=== PATIENT | female | born 1965 | race Caucasian/White ===

== ENCOUNTER → 2017-05-08 10:08 | Outpatient (CLI) | payer OTHER, SELFPAY ==
--- NOTE | 2017-05-08 10:13 | HPBI_ITS ---
MAMMOGRAPHY - BILATERAL DIAGNOSTIC REASON FOR EXAM: Female, 52 years old. Right breast lump PERTINENT HISTORY: Non-contributory. TECHNIQUE: Digital examination. Mediolateral oblique (MLO) and craniocaudad (CC) views of both breasts were obtained, along with 3-D tomosynthesis. CAD: CAD was performed on this study. COMPARISON: 03/08/2016 FINDINGS: Breast Composition: There are scattered areas of fibroglandular density. There are no dominant masses or suspicious calcifications. However, patient complains of a palpable right breast lump which needs further evaluation with ultrasound. No other significant abnormalities are identified. HPBI/DIAG MAMM W/CAD, BILAT IMPRESSION: Further ultrasonographic evaluation recommended, as described above. Recall Side: Right Breast ASSESSMENT CATEGORY: BIRADS Category 0: Incomplete. Need additional imaging evaluation. A letter regarding these results will be sent to the patient by the facility within 30 days. FOLLOW UP RECOMMENDATION: Ultrasound Recommended. (I) BR0A Approximately 10% of breast cancers are not detected by mammography. A normal mammogram should not delay biopsy of a clinically suspicious abnormality. Electronically Signed: Artie Romero MD at 13:40 EDT , Service support ,
--- NOTE | 2017-05-08 10:13 | US_ITS ---
STUDY: ULTRASOUND BREAST - RIGHT REASON FOR EXAM: Female, 52 years old. right breast lump TECHNIQUE: Axial and longitudinal images of the RIGHT breast were performed with a high resolution ultrasound transducer. COMPARISON: None. FINDINGS: RIGHT Breast: There is a cyst in the upper outer quadrant. The lesion measures 0.3 x 0.3 x 0.3 cm in size. Clock notation: 11 o'clock position. Distance from nipple: 2 cm. Posterior Enhancement: Yes. Posterior Shadowing: None. Margins: Sharp and smooth. Echogenicity: Anechoic. Compression effect on Shape: No change. Few dilated ducts are seen in the retroareolar region. US/Breast Limited Unilateral IMPRESSION: There is a cyst in the upper outer quadrant. The lesion measures 0.3 x 0.3 x 0.3 cm in size. Clock notation: 11 o'clock position. Distance from nipple: 2 cm. ASSESSMENT CATEGORY: BIRADS Category 2: Benign. A letter regarding these results will be sent to the patient by the facility within 30 days. Electronically Signed: Jayjay Avery MD at 9:55 EDT Tel , Service support ,
== END ==
PROVIDERS: Family Provider Family Medicine; PCP Family Medicine; Visit Provider Obstetrics & Gynecology
DX: N63.10 Unspecified lump in the right breast, unspecified quadrant (principal)
CPT/HCPCS: 76642; 77062; 77066; G0279

== ENCOUNTER → 2017-06-18 08:49 | Outpatient (CLI) | payer OTHER, SELFPAY ==
[2017-06-18 10:46] LABS: Creatinine, Serum 0.86 mg/dL (0.55-1.02); EST Glomerular Filtration Rate 75 mL/min (>60); Est Glom Filt Rate - Afr Amer 90 mL/min (>60)
== END ==
PROVIDERS: Family Provider Family Medicine; PCP Family Medicine; Visit Provider Psychiatry & Neurology Psychiatry
DX: Z79.899 Other long term (current) drug therapy (principal)
CPT/HCPCS: 36415; 80178; 82565; 84443

== ENCOUNTER → 2017-11-17 07:32 | Outpatient (CLI) | payer OTHER, SELFPAY ==
[2017-11-17 10:32] LABS: Follicle Stimulating Hormone 71.2 mIU/mL; Free T3 2.8 pg/mL (2.18-3.98); Luteinizing Hormone 36.9 mIU/mL; T4 Free Direct 0.81 ng/dL (0.76-1.46); Thyroid Stim Hormone (TSH) 3.14 uIU/mL (0.358-3.74)
== END ==
PROVIDERS: Family Provider Family Medicine; PCP Family Medicine; Referring Provider Family Medicine; Visit Provider Family Medicine
DX: R53.83 Other fatigue (principal)
CPT/HCPCS: 36415; 83001; 83002; 84439; 84443; 84481

== ENCOUNTER → 2018-01-19 08:48 | Outpatient (CLI) | payer OTHER, SELFPAY ==
[2017-05-12 13:03] VITALS: BMI 37.9
[2018-01-19 10:53] LABS: Creatinine, Serum 0.86 mg/dL (0.55-1.02); EST Glomerular Filtration Rate 74 mL/min (>60); Est Glom Filt Rate - Afr Amer 89 mL/min (>60); Thyroid Stim Hormone (TSH) 2.86 uIU/mL (0.358-3.74)
[2018-01-19 11:55] LABS: Cholesterol 212 mg/dL (200); High Density Lipoprotein 33 mg/dL; Triglycerides 299 mg/dL; Very Low Density Lipoprotein 60 mg/dL (5-40)
--- OUTSIDE RECORDS SUMMARY | 2018-03-14 10:57 | XMS RPT_ITS ---
:1965 Author Organization OHIP Support Name Relationship Address Phone SHAQUILLE BHATT Unavailable [address] + [place] [address] JAQUELINE ALVARADO Unavailable [address] + [place] [address] UE Unavailable Unavailable Unavailable SHAQUILLE BHATT Unavailable [address] + [place] [address] CHRISTIANO JAQUELINE Unavailable [address] + [place] [address] UE Unavailable Unavailable Unavailable SHAQUILLE BHATT Unavailable [address] [phone] [place] [address] CHRISTIANO JAQUELINE Unavailable [facility] [address] + [place] [address] UE Unavailable Unavailable Unavailable SHAQUILLE BHATT Unavailable [address] + [place] [address] CHRISTIANO JAQUELINE Unavailable [facility] [address] + [place] [address] UE Unavailable Unavailable Unavailable SHAQUILLE BHATT Unavailable [address] + [place] [address] CHRISTIANO JAQUELINE Unavailable [facility] [address] + [place] [address] UE Unavailable Unavailable Unavailable Care Team Providers Name Role Phone LORENZO AGGARWAL DO Attending Unavailable Jr Curtis Attending Unavailable Jr Curtis Referring Unavailable Lorenzo Aggarwal Primary Care Unavailable Marcos Banks Attending Unavailable Lorenzo Aggarwal Referring Unavailable Chel Barker Attending Unavailable Chel Barker Referring Unavailable Lorenzo Aggarwal Primary Care Unavailable Lorenzo Aggarwal Attending Unavailable Lorenzo Aggarwal Referring Unavailable Lorenzo Aggarwal Primary Care Unavailable Chuyita Serna Attending Unavailable Chuyita Serna Referring Unavailable Chuyita Serna Primary Care Unavailable Chel Barker Consulting Unavailable PROBLEMS PROBLEMS DATE TYPE CONDITION / CODE ATTENDING STATUS SOURCE 11/17/2017 Unknown R53.83 - Other Alessia, Active [facility] fatigue / [facility] R53.83(ICD-10) Hospital Repository 11/12/2017 Admitting Unspecified ALESSIA DO, Active [facility] Diagnosis abnormal findings LORENZO [facility] in urine / Repository R82.90(ICD-10) 05/08/2017 Unknown N63.10 - Jr Curtis Active [facility] Unspecified lump Community in [facility] Hospital breast, Repository unspecified quadrant / N63.10(ICD-10) PROCEDURES PROCEDURES No Procedure Records FoundRESULTS RESULTS SERUM CREATININE AND Collected: 01/19/2018 Status: F Source: LILY GFR 8:55 AM [facility] REPOSITORY TYPE CODE TESTS RESULT OUT OF RANGE REFERENCE UNITS LAB L501.1100 0.55-1.02 mg/dL Normal 0.86 CREAT,SERUM Result Comment: The validity of the calculated GFR AND GFRAA in patients over 70 years has not been determined. Clinical correlation is essential. LAB L501.1110 >60 mL/min Normal EST GFR 74 Result Comment: Non- GFR Calc LAB L501.1115 >60 mL/min Normal EST GFR - AA 89 Result Comment: GFR Calc Performed By: #### L501.1105, L501.9520 #### [facility] [address] [place], [place], [address] THYROID STIM HORMONE Collected: 01/19/2018 Status: F Source: LILY (TSH) 8:55 AM [facility] REPOSITORY TYPE CODE TESTS RESULT OUT OF RANGE REFERENCE UNITS LAB L501.9520 0.358-3.74 uIU/mL Normal TSH 2.86 Performed By: #### L501.1105, L501.9520 #### [facility] [address] [facility] [place], [address] LITHIUM Collected: 01/19/2018 Status: F Source: LILY 8:55 AM [facility] REPOSITORY Order Comment: Date of Last Dose: 01/18/18 Time of Last Dose: 2100 TYPE CODE TESTS RESULT OUT OF RANGE REFERENCE UNITS LAB L501.9060 0.60-1.20 mmol/L Normal LI 0.70 Performed By: #### L501.9060 #### [facility] [address] [facility], [address] LIPID PROFILE Collected: 01/19/2018 Status: F Source: LILY 8:55 AM [facility] REPOSITORY TYPE CODE TESTS RESULT OUT OF RANGE REFERENCE UNITS LAB L501.4900 200 mg/dL High CHOL 212 Result Comment: <200 mg/dL Desirable 200-240 mg/dL Borderline >240 mg/dL High Risk LAB L501.5000 mg/dL High TRIG 299 Result Comment: The drugs N-Acetylcysteine and Metamizole may falsely depress this assay. Serum Triglycerides Reference Interval Normal <150 mg/dL Borderline high 150 - 199 mg/dL High 200 - 499 mg/dL Very High > or = 500 mg/dL LAB L501.6400 mg/dL Low HDL 33 Result Comment: The drugs N-Acetylcysteine and Metamizole may falsely depress this assay. Reference Range HDL <40 mg/dL Low HDL Cholesterol HDL >or= 60 mg/dL High HDL Cholesterol LAB L501.6500 0-130 mg/dL Normal LDL 119 LAB L501.6600 5-40 mg/dL High VLDL 60 Performed By: #### L500.4100 #### [facility] [address] [place], [place], [address] FREE T3 Collected: 11/17/2017 Status: F Source: LILY 7:36 AM [facility] REPOSITORY TYPE CODE TESTS RESULT OUT OF RANGE REFERENCE UNITS LAB L501.86509 2.18-3.98 pg/mL Normal FREE T3 2.8 Performed By: #### L501.20210, L501.9520, L506.0400, L3100.5125, L3100.5170 #### [facility] [address] [place], [address] THYROID STIM HORMONE Collected: 11/17/2017 Status: F Source: LILY (TSH) 7:36 AM [facility] REPOSITORY TYPE CODE TESTS RESULT OUT OF RANGE REFERENCE UNITS LAB L501.9520 0.358-3.74 uIU/mL Normal TSH 3.14 Performed By: #### L501.46592, L501.9520, L506.0400, L3100.5125, L3100.5170 #### [facility] [address] [place], [place], [address] T4 FREE DIRECT Collected: 11/17/2017 Status: F Source: LILY 7:36 AM [facility] REPOSITORY TYPE CODE TESTS RESULT OUT OF RANGE REFERENCE UNITS LAB L506.0400 0.76-1.46 ng/dL Normal T4 FREE 0.81 DIRECT Performed By: #### L501.29077, L501.9520, L506.0400, L3100.5125, L3100.5170 #### [facility] [address] [place], [place], [address] FOLLICLE STIMULATING Collected: 11/17/2017 Status: F Source: BERTRAM HORMONE 7:36 AM [facility] REPOSITORY TYPE CODE TESTS RESULT OUT OF RANGE REFERENCE UNITS LAB L3100.5125 mIU/mL Normal FSH 71.2 Result Comment: NORMAL REFERENCE RANGES FEMALE FOLLICULAR 2.3 - 12.6 mIU/mL MID-CYCLE PEAK 5.2 - 17.5 mIU/mL LUTEAL 1.7 - 12.9 mIU/mL POST-MENOPAUSAL ON MHT 5.9 - 72.8 mIU/mL NOT ON MHT 12.7 - 132.2 mlU/mL MALE 0.7 - 10.8 mIU/mL NEW TEST METHOD AND REFERENCE RANGES JULY 08, 2011 Performed By: #### L501.22818, L501.9520, L506.0400, L3100.5125, L3100.5170 #### [facility] [address] [place], [place], [address] LUTEINIZING HORMONE Collected: 11/17/2017 Status: F Source: LILY 7:36 AM [facility] REPOSITORY TYPE CODE TESTS RESULT OUT OF RANGE REFERENCE UNITS LAB L3100.5170 mIU/mL Normal LH 36.9 Result Comment: NORMAL REFERENCE RANGES FEMALE FOLLICULAR 1.9 - 26.2 mIU/mL MID-CYCLE PEAK 22.8 - 76.1 mIU/mL LUTEAL 0.6 - 16.6 mIU/mL POST-MENOPAUSAL ON MHT 1.1 - 52.4 mIU/mL NOT ON MHT 8.6 - 61.8 mIU/mL MALE 1.2 - 10.6 mIU/mL NEW TEST METHOD AND REFERENCE RANGES JULY 08, 2011 Performed By: #### L501.59014, L501.9520, L506.0400, L3100.5125, L3100.5170 #### [facility] [address] [facility] [place], [address] Observed: 11/12/2017 Status: F Source: [facility] 6:26 AM [facility] REPOSITORY . MICRO - Microbiology PROCEDURE: Urine Culture [*1] SOURCE: Urine BODY SITE: COLLECTED DATE/TIME: 11/12/2017 06:26 EDT RECEIVED DATE/TIME: 11/12/2017 15:33 EDT START DATE/TIME: 11/12/2017 15:33 EDT FREE TEXT SOURCE: FINAL REPORTS Final Report [] Verified Date/Time/Personnel: 11/14/2017 06:50 EDT 20,000 organisms per mL Mixed without predominant isolate(s). Sensitivity Testing not indicated. Probably contamination. Repeat culture suggested. PRELIMINARY REPORTS Preliminary Report [] Verified Date/Time/Personnel: 11/13/2017 14:23 EDT Culture results pending. Performing Locations *1: This test was performed at: [facility], [address] [place] [address], [address] [place] [address] Performed By: #### CUR #### [place] [id number] LITHIUM Collected: 06/18/2017 Status: F Source: BERTRAM 9:10 AM [facility] REPOSITORY Order Comment: Date of Last Dose: 06/17/17 Time of Last Dose: 2114 TYPE CODE TESTS RESULT OUT OF RANGE REFERENCE UNITS LAB L501.9060 0.60-1.20 mmol/L Normal LI 0.70 Performed By: #### L501.9060 #### [facility] [address] [facility] [place], [address] SERUM CREATININE AND Collected: 06/18/2017 Status: F Source: LILY GFR 9:10 AM [facility] REPOSITORY TYPE CODE TESTS RESULT OUT OF RANGE REFERENCE UNITS LAB L501.1100 0.55-1.02 mg/dL Normal 0.86 CREAT,SERUM Result Comment: The validity of the calculated GFR AND GFRAA in patients over 70 years has not been determined. Clinical correlation is essential. LAB L501.1110 >60 mL/min Normal EST GFR 75 Result Comment: Non- GFR Calc LAB L501.1115 >60 mL/min Normal EST GFR - AA 90 Result Comment: GFR Calc Performed By: #### L501.1105, L501.9520 #### [facility] [address] [place], [place], [address] THYROID STIM HORMONE Collected: 06/18/2017 Status: F Source: LILY (TSH) 9:10 AM [facility] REPOSITORY TYPE CODE TESTS RESULT OUT OF RANGE REFERENCE UNITS LAB L501.9520 0.358-3.74 uIU/mL High TSH 3.90 Performed By: #### L501.1105, L501.9520 #### [facility] [address] [place], [place], [address] SURGERY VISIT REPORT Observed: 05/12/2017 Status: F Source: LILY 4:04 PM [facility] REPOSITORY [facility] [address] [facility] [address] [place] [address] OFFICE VISIT Date of Service: 05/12/17 MR#: [id number] Acct: [id number] Name: RAVIN BHATT Rep #: [id number] : 1965 Provider: Marcos Banks MD Age/Sex: 52/F Location: [facility] Status: Signed Intake Vital Signs05/12/17 Height 5 ft 7 in 05/12/17 Weight: 242 lb Intake Visit Reasons: Right Breast Mass Forge Hand Required: No Is patient in pain?: No Allergies azithromycin [From Zithromax] Allergy (Intermediate, Verified 05/12/17 13:12) rash steroids Allergy (Intermediate, Uncoded 05/12/17 13:05) severe mood swings Medications adalimumab 40 mg/0.8 mL subcutaneous pen kit 40 mg SC Q14D 05/12/17 [History Confirmed 05/12/17] lithium carbonate 300 mg capsule 1,200 mg PO ONCE cap 05/12/17 [History Confirmed 05/12/17] venlafaxine 75 mg tablet 75 mg PO QDAY tab 05/12/17 [History Confirmed 05/12/17] PFSH Medical History Arthritis (Acute) Lump of right breast (Acute) Surgical History History of back surgery (Acute) History of hysterectomy (Acute) Family History Mother Arthritis Diabetes Social History Smoking Status: Never smoker alcohol intake: never substance use type: does not use HPI HPI HPI: RAVIN BHATT, is a 52 F who presents to the office today for evaluation of an abnormal mammogram and ultrasound. Patient had a mammogram and ultrasounds done at [facility] on 05/08/2017. It was read as a BI-RADS Category 2 showing a 3 mm cyst at the 11 o'clock position 2 cm from the nipple areolar complex. She also had a few dilated ducts in the retroareolar region. Her HELMET HAT PUNCHER felt a mass in the upper aspect of her breast but this did not show any abnormalities on the ultrasound and a my viewing of it it did not show any abnormalities on the mammogram. At the time of this dictation however the mammogram was not read. ROS General General: Yes weight change; no appetite, fatigue, colon cancer, breast cancer or weakness Endo Endocrine: No thyroid disease, diabetes mellitus, thyroid cancer, Hair loss, heat intolerance or cold intolerance Skin Skin: Yes changing moles; no rash Breast Breast: Yes right breast lump; no left breast lump, nipple discharge, breast pain, abnormal mammogram, abnormal US or breast enlargement Musc Musculoskeletal: Yes back problems and arthritis; no rheumatoid arthritis, gout or joint pain Cardio Cardiovascular: No murmur, pacemaker, heart disease, atrial fibrillation, high blood pressure, heart attack, heart stent, palpitations, shortness of breat with exertion or chest pain Psych Psychiatric: No depression, anxiety or hearing voices Resp Respiratory: No shortness of breath, No sleep apnea, No cough, No COPD, No asthma, No emphysema, No wheezing Gastro Gastrointestinal: No abdominal pain, No nausea or vomiting, No diarrhea, No constipation, No blood in stool, No acid reflux, No hemorrhoids, No ulcers, No gallbladder problem, No black,tarry stools Jayden Hematologic: No blood thinners, No blood disorders, No bleeding, No anemia, No blood clots Neuro Neurologic: No system reviewed and no additional complaints, except as docu, No as per HPI, No abnormal walking, No abnormal hearing, No abnormal movements, No abnormal speech, No behavioral changes, No burning sensations, No confusion, No seizure-like activity, No unsteadiness, No dizziness, No localized weakness, No frequent falls, No headache(s), No lack of coordination, No loss of vision, No memory loss, No numbness, No other visual disturbances, No radiating pain, No restless legs, No sensory deficit, No fainting, No tingling, No tremor(s), No weakness, No other Exam HENMT Head: normal to inspection, normocephalic, atraumatic Mouth: moist mucous membranes, oropharynx normal Eyes General: appearance normal, both eyes and all related structures Sclera: sclerae normal Neck Neck: no lymphadenopathy noted, trachea midline Neck mass: No Thyroid: thyroid normal Lymphatic: no lymphadenopathy noted Chest Breast inspection: normal inspection of the breasts Breast Palpation: No nipple discharge Other: There is some thickened breast tissue in the upper aspect of both breasts more so on the right though. This does not feel pathologic in nature. Resp Other: Respiratory Exam: Deferred Cardio Heart Sounds: no murmurs Other: Cardiac Exam: Deferred GI Other: GI Exam: Deferred Other: Rectal Exam: Deferred Extrem Other: Extremity Exam: Deferred Assessment AND Plan Problems 1. Cyst of right breast N60.01 Plan No surgical intervention is needed at this time. I am going to have to wait until we get the final reading done before I make my final recommendations with regards to any potential stereotactic breast biopsies. But at the present time I really do not think we need to do any biopsy. Medications New: Coding Level of Care Code Off vis,new,level 2 Diagnoses Cyst of right breast N60.01 Laterality: right 05/12/17 1604 <Electronically signed by Marcos Banks MD> Date Marcos Falcon Signature: Date (if applicable) CC: Lorenzo Aggarwal DO; Jr Curtis MD BREAST LIMITED Observed: 05/08/2017 Status: F Source: LILY UNILATERAL 10:14 AM [facility] REPOSITORY [facility] Imaging Services [address] [place] [address] Breast Limited Unilateral MR#: [id number] Acct: [id number] Name: RAVIN BHATT Rep #: [id number] : 1965 F 52 From: Jayjay Avery MD PCP: Lorenzo Aggarwal DO Status: REG CLI Study: Breast Limited Unilateral Date of Exam: 05/08/17 Exam# [id number] Ordering Dr: Jr Curtis MD STUDY: ULTRASOUND BREAST - RIGHT REASON FOR EXAM: Female, 52 years old. right breast lump TECHNIQUE: Axial and longitudinal images of the RIGHT breast were performed with a high resolution ultrasound transducer. COMPARISON: None. FINDINGS: RIGHT Breast: There is a cyst in the upper outer quadrant. The lesion measures 0.3 x 0.3 x 0.3 cm in size. Clock notation: 11 o'clock position. Distance from nipple: 2 cm. Posterior Enhancement: Yes. Posterior Shadowing: None. Margins: Sharp and smooth. Echogenicity: Anechoic. Compression effect on Shape: No change. Few dilated ducts are seen in the retroareolar region. US/Breast Limited Unilateral IMPRESSION: There is a cyst in the upper outer quadrant. The lesion measures 0.3 x 0.3 x 0.3 cm in size. Clock notation: 11 o'clock position. Distance from nipple: 2 cm. ASSESSMENT CATEGORY: BIRADS Category 2: Benign. A letter regarding these results will be sent to the patient by the facility within 30 days. Electronically Signed: Jayjay Avery MD at 9:55 EDT Tel , Service support , CC: Lorenzo Aggarwal DO; Jr Curtis MD Manual Writer: Signed DIAG MAMM W/CAD, Observed: 05/08/2017 Status: F Source: BERTRAM BILAT 10:14 AM [facility] REPOSITORY [facility] Imaging [facility] [address] [address] DIAG MAMM W/CAD, BILAT MR#: [id number] Acct: [id number] Name: RAVIN BHATT Rep #: [id number] : 1965 F 52 From: Weston Romero MD PCP: Lorenzo Aggarwal DO Status: REG CLI Study: DIAG MAMM W/CAD, BILAT Date of Exam: 05/08/17 Exam# [id number] Ordering Dr: Jr Curtis MD MAMMOGRAPHY - BILATERAL DIAGNOSTIC REASON FOR EXAM: Female, 52 years old. Right breast lump PERTINENT HISTORY: Non-contributory. TECHNIQUE: Digital examination. Mediolateral oblique (MLO) and craniocaudad (CC) views of both breasts were obtained, along with 3-D tomosynthesis. CAD: CAD was performed on this study. COMPARISON: 03/08/2016 FINDINGS: Breast Composition: There are scattered areas of fibroglandular density. There are no dominant masses or suspicious calcifications. However, patient complains of a palpable right breast lump which needs further evaluation with ultrasound. No other significant abnormalities are identified. HPBI/DIAG MAMM W/CAD, BILAT IMPRESSION: Further ultrasonographic evaluation recommended, as described above. Recall Side: Right Breast ASSESSMENT CATEGORY: BIRADS Category 0: Incomplete. Need additional imaging evaluation. A letter regarding these results will be sent to the patient by the facility within 30 days. FOLLOW UP RECOMMENDATION: Ultrasound Recommended. (I) BR0A Approximately 10% of breast cancers are not detected by mammography. A normal mammogram should not delay biopsy of a clinically suspicious abnormality. Electronically Signed: Artie Romero MD at 13:40 EDT , Service support , CC: Lorenzo Curtis MD Manual Writer: Signed ALLERGIES ALLERGIES DATE TYPE / CODE NAME / CODE REACTION SEVERITY SOURCE 05/12/2017 Drug azithromycin/F Rash [place] [facility] Allergy/497442974(S 108438482(RXNO [facility] NOMED CT) ) Hospital Repository 05/12/2017 Miscellaneous steroids severe mood [place] [facility] Allergy/110861963(S swings [facility] NOMED CT) Hospital Repository ENCOUNTERS ENCOUNTERS ADMIT/DISCHARGE ACCOUNT NUMBER ADMITTING ENCOUNTER LOCATION SOURCE CLASS 01/19/2018 [id number] [facility] ding:[facility] Repository 11/17/2017 [id number] [facility] ding:[facility] Repository 11/12/2017/11/17/19 [id number] Ambulatory [address] ding:[facility] Repository 06/18/2017 [id number] [facility] ding:MTLAB Repository 05/12/2017/05/13/19 [id number] Ambulatory BMSBuilding: Lily [facility] Count includes the [facility] Repository 05/08/2017 [id number] [facility] ding:BI Repository PAYERS PAYERS ENCOUNTER GUARANTOR PAYER SUBSCRIBER SOURCE 01/19/2018 RAVIN L Primary Insurance:UMR SHAQUILLE J [facility] [id number] SHENA [id number] HEFFELFINGERDOB: [facility] [address] Number: [id number], [place] [id number] Repository [address]Qxv: (330) Date:[id number] [phone] () [address] [place] [phone]: 01/19/2018 Secondary NOT GIVENUNK [facility] Insurance:SELF PAY [facility] Number: Effective Repository Date:2018-01-19 11/17/2017 RAVIN L Primary Insurance:UMR SHAQUILLE Lauryn Hanna [id number] SHENA [id number] HEFFELFINGERDOB: [facility] [address] Number: [id number], [place] [id number] Repository [address]Aoy: ([phone]) Date:[id number] [phone] () [address] [place] [phone]: 11/17/2017 Secondary NOT GIVENUNK [facility] Insurance:SELF PAY [facility] Number: Effective Repository Date:2017-11-17 11/12/2017 RAVIN [facility]: Insurance[facility] HospitalFFECarylFINAMYB: [facility] [id number] S Number: [id number] Repository [address] [id number] [address] [place], [place] Date:2017-11-12 - [place], [place] [address]Nxk: [phone] [id number]: (HP) Name:SENIOR LINUX ADMINISTRATOR [phone] [place] [address], ()Tel: ([phone]) PM [phone]: [phone] (WP) 06/18/2017 RAVIN L Primary Insurance:UMR SHAQUILLE Lauryn Hanna [id number] SHENA [id number] HEFFELFINGERDOB: [facility] [address] Number: [id number], [place] [id number] Repository [address]Qmk: [phone]) Date:[id number] [phone] (HP) [address] [place] [phone]: 06/18/2017 Secondary NOT GIVENUNK [facility] Insurance:SELF PAY [facility] Number: Effective Repository Date:2017-06-18 05/12/2017 Shaquille J Primary Insurance:UMR Shaquille J Lily [id number] SHENA [id number] HeffelfingerDOB: [facility] [address] Number: [id number], [place] [id number] Repository [address]Hng: ([phone]) Date:[id number] [phone] () [address] [place] [phone]: 05/12/2017 Secondary NOT GIVENUNK Lily Insurance:SELF PAY [facility] Number: Effective Repository Date:2017-05-12 05/08/2017 RAVIN L Primary Insurance:UMR Shaquille J Lily [id number] SHENA [id number] HeffelfingerDOB: [facility] [address] Number: [id number], [place] [id number] Repository [address]Ail: ([phone]) Date:[id number] [phone] (HP) [address] [place] [phone]: 05/08/2017 Secondary NOT GIVENUNK Lily Insurance:SELF PAY [facility] Number: Effective Repository Date:2017-05-01
== END ==
PROVIDERS: Psychiatry & Neurology Psychiatry; Family Provider Family Medicine; PCP Family Medicine; Referring Provider Family Medicine; Visit Provider Family Medicine
DX: Z00.01 Encounter for general adult medical examination with abnormal findings (principal); Z79.899 Other long term (current) drug therapy
CPT/HCPCS: 36415; 80061; 80178; 82565; 84443

== ENCOUNTER → 2018-04-23 08:53 | Outpatient (CLI) | payer OTHER, SELFPAY ==
[2018-04-23 12:36] LABS: AST(SGOT) 34 U/L (15-37); Alanine Aminotransfer ALT/SGPT 56 U/L (13-56); Albumin, Serum 4.1 g/dL (3.2-5.0); Alkaline Phosphatase 110 U/L (45-117); Bilirubin, Direct 0.07 mg/dL (0.00-0.30); Protein, Total 8.1 g/dL (6.4-8.2)
== END ==
PROVIDERS: Family Provider Family Medicine; PCP Family Medicine; Visit Provider Family Medicine
DX: E78.5 Hyperlipidemia, unspecified (principal)
CPT/HCPCS: 36415; 80076

== ENCOUNTER → 2018-06-03 | Outpatient (CLI) | payer OTHER, SELFPAY ==
[2017-05-12 13:03] VITALS: BMI 37.9
[2018-06-03 13:03] LABS: CPK Total, Creatine Kinase 106 U/L (26-192); Thyroid Stim Hormone (TSH) 2.08 uIU/mL (0.358-3.74)
== END | disposition home or self-care (01) ==
LOC: MTLAB 10:06
PROVIDERS: Family Provider Family Medicine; PCP Family Medicine; Referring Provider Psychiatry & Neurology Psychiatry; Visit Provider Psychiatry & Neurology Psychiatry
DX: Z79.899 Other long term (current) drug therapy (principal)
CPT/HCPCS: 36415; 80178; 82550; 84443

== ENCOUNTER → 2018-06-04 | Outpatient (CLI) | payer OTHER, SELFPAY ==
[2017-05-12 13:03] VITALS: BMI 37.9
--- NOTE | 2018-06-04 13:35 | BI_ITS ---
MAMMOGRAPHY - BILATERAL SCREENING REASON FOR EXAM: Female, 53 years old. Routine annual screening examination. PERTINENT HISTORY: Non-contributory. TECHNIQUE: Digital bilateral breast nikole (3D mammographic acquisition) in the CC and MLO projections. 2-D mediolateral oblique (MLO) and craniocaudad (CC) views of both breasts were obtained. CAD: Full Field Digital Mammography with Computer Added Detection was performed. COMPARISON: Comparison is made with prior study dated September 05, 2016 and May 09, 2007. FINDINGS: Breast Composition: The breasts are heterogeneously dense, which may obscure small masses. There are no dominant masses or suspicious calcifications. Stable asymmetry of breast tissue or more breast tissue is seen in the upper outer quadrant of the left breast as compared to the right side. Stable small bilateral axillary lymph nodes. No other significant abnormalities are identified. There has been no significant change since the prior study. BI/SCREENING MAMM (CAD), BILAT IMPRESSION: Stable bilateral screening mammogram. Yearly follow-up mammogram recommended. (A) ASSESSMENT CATEGORY: BIRADS Category 2: Benign. A letter regarding these results will be sent to the patient by the facility within 30 days. Approximately 10% of breast cancers are not detected by mammography. A normal mammogram should not delay biopsy of a clinically suspicious abnormality. [id number] Electronically Signed: Kurt Mattson, at 9:40 EDT , Service support ,
== END | disposition home or self-care (01) ==
LOC: OPBI 13:33
PROVIDERS: Family Provider Family Medicine; PCP Family Medicine; Referring Provider Obstetrics & Gynecology; Visit Provider Obstetrics & Gynecology
DX: Z12.31 Encounter for screening mammogram for malignant neoplasm of breast (principal)
CPT/HCPCS: 77063; 77067

== ENCOUNTER → 2018-07-07 | Outpatient (CLI) | payer OTHER, SELFPAY ==
[2017-05-12 13:03] VITALS: BMI 37.9
--- NOTE | 2018-07-07 12:04 | RAD_ITS ---
STUDY: X-RAY - LEFT WRIST REASON FOR EXAM: Female, 53 years old. Injury several weeks ago, navicular pain TECHNIQUE: 4 view(s) of the wrist were obtained. COMPARISON: None. FINDINGS: Normal visualized distal radius and ulna. Normal radiocarpal articulation. Normal distal radioulnar articulation. Normal carpal bones. Normal carpal articulations. Normal carpometacarpal articulation of the thumb. Normal second through fifth carpometacarpal articulations. Normal visualized metacarpal bones. The soft tissue structures are unremarkable. RAD/Wrist min 3 Views IMPRESSION: No acute osseous injury is evident. Electronically Signed: Serge Mcrae MD at 8:32 EDT Tel , Service support ,
--- NOTE | 2018-07-07 12:04 | RAD_ITS ---
STUDY: X-RAY - LEFT RADIUS AND ULNA REASON FOR EXAM: Female, 53 years old. Injury several weeks ago. Leash wrapped around left wrist with dog pulling on leash. Pain near the navicular area. TECHNIQUE: 2 view(s) of the forearm. COMPARISON: None. FINDINGS: There is no demonstrated soft tissue swelling. Normal visualized radius. Normal visualized ulna. RAD/Forearm 2 Views IMPRESSION: Normal x-ray examination of the radius and ulna. Electronically Signed: Edwin Longoria MD at 11:25 EDT , Service support ,
== END | disposition home or self-care (01) ==
LOC: MTRAD 12:00
PROVIDERS: Family Provider Family Medicine; PCP Family Medicine; Referring Provider Family Medicine; Visit Provider Family Medicine
DX: S63.502A Unspecified sprain of left wrist, initial encounter (principal)
CPT/HCPCS: 73090; 73110

== ENCOUNTER → 2018-11-17 | Outpatient (CLI) | payer OTHER, SELFPAY ==
[2017-05-12 13:03] VITALS: BMI 37.9
[2018-11-17 13:00] LABS: Creatinine, Serum 0.95 mg/dL (0.55-1.02); EST Glomerular Filtration Rate 66 mL/min (>60); Est Glom Filt Rate - Afr Amer 80 mL/min (>60); Thyroid Stim Hormone (TSH) 3.42 uIU/mL (0.358-3.74)
== END | disposition home or self-care (01) ==
LOC: MTLAB 09:37
PROVIDERS: Family Provider Family Medicine; PCP Family Medicine; Referring Provider Psychiatry & Neurology Psychiatry; Visit Provider Psychiatry & Neurology Psychiatry
DX: Z79.899 Other long term (current) drug therapy (principal)
CPT/HCPCS: 36415; 80178; 82565; 84443

== ENCOUNTER → 2019-01-19 07:57 | Outpatient (CLI) | payer OTHER, SELFPAY ==
--- NOTE | 2019-01-19 08:00 | RAD_ITS ---
PROCEDURE: SMALL BOWEL SERIES DATE OF EXAMINATION: January 19, 2019.. INDICATION: Female, 53 years old. History of Crohn's disease. History of prior fistula. PHYSICIAN: Kurt Mattson M.D. FLUOROSCOPY TIME (if supplied): (0:30) minutes/seconds. TECHNIQUE: Radiographic and fluoroscopic images were taken of the small intestine following the ingestion of barium. COMPARISON: Comparison is made with prior study dated June 26, 2015. FINDINGS: A preliminary supine KUB was obtained. There is an unremarkable bowel gas pattern. Fecal material is present throughout the colon. Linear densities are seen overlying the lateral aspect of the right abdominal wall most likely representing prior barium extravasation. The lung bases are unremarkable. The osseous structures are normal. The patient orally ingested approximately 12 ounces of thin barium Normal visualized fundus, body, and antrum of the stomach. Normal duodenal bulb, C-loop, and proximal jejunum. Normal visualized mucosal folds of the jejunum and ileum. There are no demonstrated dilatations, strictures, or masses of the small intestine. There is no mass displacement of the loops of small intestine. There is a normal motor pattern with barium reaching the colon within approximately 45 minutes. Spot films under fluoroscopic observation demonstrated a normal terminal ileum and ileocecal valve. RAD/Small Bowel Series Only IMPRESSION: Normal small bowel series. Electronically Signed: Kurt Mattson, at 15:49 EST , Service support ,
== END ==
LOC: RAD 07:58
PROVIDERS: Family Provider Family Medicine; PCP Family Medicine; Referring Provider Internal Medicine Gastroenterology; Visit Provider Internal Medicine Gastroenterology
DX: K50.90 Crohn's disease, unspecified, without complications (principal)
CPT/HCPCS: 74250

== ENCOUNTER 2019-01-25 11:30 | Outpatient (RCR) | payer OTHER, SELFPAY ==
--- NOTE | 2019-01-06 12:15 | HP.OTEVAL_ITS ---
Patient's Visit Information ROSE BHATT is a 53 year old F, referred to Occupational Therapy by Chuyita Serna MD, with a diagnosis of Left wrist pain. Date of Evaluation: 01/06/19 Occupational Therapist: Cindy Gasca, DAK[place]/L - Subjective Subjective: Arrived and noted that orginal injury occured in May 2018. She noted she was walking puppy and dog took off on her. She noted leash was around wrist and when dog ran it pull on wrist. X-rays were insignificant. She noted they she continues to reinjury left wrist off/on. She noted wrist was feeling better but has reinjuryed. - ADLs Dressing: Bra, Pants, Socks, Shoes Eating: Cut food Kitchen: Chop with knife, Peel fruits & vegetables, Open jars, Open bottle caps, Take dish out of oven Household: Laundry Miscellaneous: Turn pages in book, Pump gas, Drive Comments: holding marlene - Pain Left Wrist 1 Pain Intensity Range: 1, 8 - ROM Wrist: flexion 0-73, L 0-60; ext R 0-55, L 0-49 MP: WFL PIP: WFL DIP: WFL ROM Comments: radial dev R 0-15, L 0-13. ulnar dev R 0-33, L 0-15. Increased pain with all movements of left wrist and hand. - Strength Hair Stylist: R 49, L 31 Lateral Pinch: R 10, L 8 Tripod Pinch: R 3, L 5 Tip-to-Tip Pinch: R unable, L 2 Strength Comments: Increased pain with all movements of left wrist and hand. 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 Goal:: Rose to have no more than 1/10 pain 4/5 trials 80% of the time with heavy tasks 4/5 trials 80% of the time by d/c. Goal:: Rose to complete edema management as needed through contrast bath, moist heat, and ice 4/5 trials 80% of the time to manage symptoms and pain to promote increased (I) by d/c. Goal:: Rose to be (I) to complete correct ergonomic and wrist mechanics 4/5 trials 80% of the time to promote increased ROM and stability by end of d/c. Goal:: Rose to be (I) to completed all ADL/IADls with L hand at PLOF with no pain 4/5 trials 80% of the time by d/c. Goal:: Rose to be (I) to complete daily HEp 4/5 trials 80% of the time to promote increased strength and stability of L wrist for ADL/IADls by d/c. - Rehabilitation General Assessment: Rose completed OT evaluation on this date 01/06/19. She is 7 month post injury while alking dog. She has had ongoing paina nd then reinjury wrist recently. Increased weakness noted throhgout wrist. Concerns of TFCC involvement as increased pain with ulnar deviation movements. Skilled OT warrented to promote strength, stability, and ability to return to PLOF by d/c. Rehabilitation Potential: Good - Anticipated Interventions Anticipated Interventions: A/AAROM/PROM, Strengthening, Edema Control, Mo dalities, Orthoses, Joint Protection/Energy Conservation, Ergonomic Education, Fine Motor Coord/Eulalio, ADL Training, Caregiver Training, Home Program - Visit Plan Frequency: 2x /Week Duration: 4 Weeks General Plan: Rose to complete 2x weekly OT tx to work on addressing strength, stability, edema and pain management, and ability to return to PLOF by d/c. TEXT: Thank you for the opportunity to evaluate your patient. For Medicare and Medicare HMO plans, please review the plan of care and approve it. It will need to be FAXED BACK to us at [phone] for Medicare purposes. Please let me know if there are questions or concerns regarding this plan of care. Physician Signature: Date:
--- NOTE | 2019-03-16 07:37 | HP.OT.NRP ---
HP - Discharge Summary - Patient Information RAVIN BHATT was seen in my office for initial evaluation on 01/06/19. The following Plan of Care was established for this patient: Initial Frequency: 2x /Week Initial Duration: 4 Weeks Plan: continue POC. - Anticipated Interventions Anticipated Interventions: A/AAROM/PROM, Strengthening, Edema Control, Modalities, Orthoses, Joint Protection/Energy Conservation, Ergonomic Education, Fine Motor Coord/Eulalio, ADL Training, Caregiver Training, Home Program This patient was last seen in our office 01/26/20. Pertinent comments regarding their Occupational therapy will appear below: Last seen to make thumb spica to help support CMC as increased pain around CMC as well as around scaphoid when palpated. She cancelled following appointments and will be d/c'd at this time. At this point I will be discontinuing this patient from occupational therapy. I would be happy to see this patient again in the future if found appropriate by the physician. Thank you! Cindy Gasca, OTR/L
== END 2019-01-25 19:00 | disposition home or self-care (01) ==
LOC: OT 11:30
PROVIDERS: Family Provider Family Medicine; PCP Family Medicine; Referring Provider Family Medicine; Visit Provider Family Medicine
DX: S63.502D Unspecified sprain of left wrist, subsequent encounter (principal)
CPT/HCPCS: 97035; 97166; 97530; 97760

== ENCOUNTER → 2019-03-29 09:55 | Outpatient (CLI) | payer OTHER, SELFPAY ==
[2017-05-12 13:03] VITALS: BMI 37.9
[2019-03-29 12:14] LABS: Hematocrit 41.4 % (37-47); Hemoglobin 13.7 g/dL (12.0-15.0); Mean Corp Hgb Conc 33.1 g/dL (32-36); Mean Corpuscular Hgb 30.9 pg (27.0-32.0); Mean Corpuscular Volume 93.5 fL (81-99); Mean Platelet Vol. 10.7 fl (6.2-12.0); Platelet Count 251 K/mm3 (150-450); RBC Distribution Width CV 11.9 % (11.6-14.6); Red Blood Count 4.43 M/mm3 (4.2-5.4); White Blood Count 6.6 K/mm3 (4.4-11.0)
[2019-03-29 12:43] LABS: AST(SGOT) 20 U/L (15-37); Alanine Aminotransfer ALT/SGPT 43 U/L (13-56); Albumin, Serum 3.8 g/dL (3.2-5.0); Alkaline Phosphatase 109 U/L (45-117); Bilirubin, Direct 0.13 mg/dL (0.00-0.30); Cholesterol 165 mg/dL (200); Globulin 4.2 g/dL (2.2-4.2); High Density Lipoprotein 38 mg/dL; Triglycerides 232 mg/dL; Very Low Density Lipoprotein 46 mg/dL (5-40)
[2019-03-29 12:58] LABS: CRP 4.86 mg/L (0.0-3.0)
== END ==
PROVIDERS: PCP Family Medicine; Referring Provider Internal Medicine Gastroenterology; Visit Provider Internal Medicine Gastroenterology
DX: E78.5 Hyperlipidemia, unspecified (principal)
CPT/HCPCS: 36415; 80061; 80076; 85027; 86140

== ENCOUNTER → 2019-08-25 11:24 | Outpatient (CLI) | payer OTHER, SELFPAY ==
[2017-05-12 13:03] VITALS: BMI 37.9
[2019-08-25 15:50] LABS: Absolute Neutrophil Count 4.7 X10^3/uL (2.0-7.7); Basophil# 0.05 X10^3/uL; Basophil% 0.6 % (0-1); Eosinophil# 0.22 X10^3/uL; Eosinophils% 2.8 % (0-5); Hematocrit 40.6 % (37-47); Hemoglobin 12.8 g/dL (12.0-15.0); Lymphocyte % 30.5 % (19-41); Mean Corp Hgb Conc 31.5 g/dL (32-36); Mean Corpuscular Hgb 30.7 pg (27.0-32.0); Mean Corpuscular Volume 97.4 fL (81-99); Mean Platelet Vol. 11.1 fl (6.2-12.0); Monocyte# 0.51 X10^3/uL; Monocyte% 6.5 % (0-10); NRBC Flagged by Analyzer 0 % (0-5); Neutrophil # 4.67 X10^3/uL (2.7-7.7); Neutrophil % 59.2 % (47-70); Platelet Count 289 K/mm3 (150-450); RBC Distribution Width CV 12.2 % (11.6-14.6); RBC Distribution Width SD 43.6 fl (35.1-43.9); Red Blood Count 4.17 M/mm3 (4.2-5.4); White Blood Count 7.9 K/mm3 (4.4-11.0)
== END ==
LOC: LAB.FUTURE 11:25 → MTLAB 11:40
PROVIDERS: PCP Family Medicine; Referring Provider Internal Medicine Gastroenterology; Visit Provider Internal Medicine Gastroenterology
DX: K50.90 Crohn's disease, unspecified, without complications (principal)
CPT/HCPCS: 36415; 85025

== ENCOUNTER → 2019-09-14 15:53 | Outpatient (CLI) | payer OTHER, SELFPAY ==
--- NOTE | 2019-09-14 15:55 | BI_ITS ---
MAMMOGRAPHY - BILATERAL SCREENING REASON FOR EXAM: Female, 54 years old. Routine annual screening examination. PERTINENT HISTORY: Non-contributory. TECHNIQUE: Digital bilateral breast nancy (3D mammographic acquisition) in the CC and MLO projections. 2-D mediolateral oblique (MLO) and craniocaudad (CC) views of both breasts were obtained. CAD: Full Field Digital Mammography with Computer Added Detection was performed. COMPARISON: Comparison is made with prior study dated 06/04/2018 and 05/08/2017. FINDINGS: Breast Composition: The breasts are heterogeneously dense, which may obscure small masses. There are no dominant masses or suspicious calcifications. Stable asymmetry of breast tissue where more breast tissue is seen in the upper outer quadrant of left breast as compared to the right side. Stable benign-appearing bilateral axillary lymph nodes. No other significant abnormalities are identified. There has been no significant change since the prior study. BI/SCREEN MAMM (CAD) W/NANCY BILAT IMPRESSION: Stable bilateral screening mammogram. Yearly follow-up mammogram recommended. (A) ASSESSMENT CATEGORY: BIRADS Category 2: Benign. A letter regarding these results will be sent to the patient by the facility within 30 days. Approximately 10% of breast cancers are not detected by mammography. A normal mammogram should not delay biopsy of a clinically suspicious abnormality. [id number] Electronically Signed: Kurt Mattson, at 8:26 EDT , Service support ,
== END ==
PROVIDERS: PCP Family Medicine; Referring Provider Obstetrics & Gynecology; Visit Provider Obstetrics & Gynecology
DX: Z12.31 Encounter for screening mammogram for malignant neoplasm of breast (principal)
CPT/HCPCS: 77063; 77067

== ENCOUNTER → 2019-10-14 10:05 | Outpatient (CLI) | payer OTHER, SELFPAY ==
[2017-05-12 13:03] VITALS: BMI 37.9
[2019-10-14 12:54] LABS: Creatinine, Serum 0.93 mg/dL (0.55-1.02); EST Glomerular Filtration Rate 67 mL/min (>60); Est Glom Filt Rate - Afr Amer 81 mL/min (>60); Thyroid Stim Hormone (TSH) 3.43 uIU/mL (0.358-3.74)
== END ==
LOC: MTLAB 10:07
PROVIDERS: PCP Family Medicine; Referring Provider Psychiatry & Neurology Psychiatry; Visit Provider Psychiatry & Neurology Psychiatry
DX: F19.10 Other psychoactive substance abuse, uncomplicated (principal); R53.83 Other fatigue; Z79.899 Other long term (current) drug therapy
CPT/HCPCS: 36415; 80178; 82565; 84443

== ENCOUNTER → 2020-02-29 09:22 | Outpatient (CLI) | payer OTHER, SELFPAY ==
[2020-02-29 12:24] LABS: Absolute Lymphocyte Count 1.94 X10^3/uL (0.83-4.51); Absolute Neutrophil Count 4.2 X10^3/uL (2.0-7.7); Basophil# 0.05 X10^3/uL; Basophil% 0.7 % (0-1); Eosinophil# 0.18 X10^3/uL; Eosinophils% 2.6 % (0-5); Hematocrit 42.5 % (37-47); Hemoglobin 13.6 g/dL (12.0-15.0); Lymphocyte # 1.94 X10^3/ul (4.0); Lymphocyte % 28.4 % (19-41); Mean Corpuscular Hgb 29.9 pg (27.0-32.0); Mean Corpuscular Volume 93.4 fL (81-99); Mean Platelet Vol. 11.3 fl (6.2-12.0); Monocyte# 0.45 X10^3/uL; Monocyte% 6.6 % (0-10); NRBC Flagged by Analyzer 0 % (0-5); Neutrophil # 4.19 X10^3/uL (2.7-7.7); Neutrophil % 61.4 % (47-70); Platelet Count 260 K/mm3 (150-450); RBC Distribution Width CV 11.9 % (11.6-14.6); RBC Distribution Width SD 41.2 fl (35.1-43.9); Red Blood Count 4.55 M/mm3 (4.2-5.4); White Blood Count 6.8 K/mm3 (4.4-11.0)
[2020-02-29 13:25] LABS: ALB/GLOB Ratio 0.9 RATIO (0.9-2.4); AST(SGOT) 23 U/L (15-37); Alanine Aminotransfer ALT/SGPT 49 U/L (13-56); Albumin, Serum 3.8 g/dL (3.2-5.0); Alkaline Phosphatase 117 U/L (45-117); Anion Gap 9 (5-15); BUN 12 mg/dL (7-18); BUN/Creat Ratio 14.1 RATIO (10-20); Calcium,Total 9.6 mg/dL (8.5-10.1); Chloride 109 mmol/L (98-107); Cholesterol 159 mg/dL (200); Creatinine, Serum 0.85 mg/dL (0.55-1.02); EST Glomerular Filtration Rate 74 mL/min (>60); Est Glom Filt Rate - Afr Amer 90 mL/min (>60); Globulin 4.1 g/dL (2.2-4.2); Glucose 178 mg/dL (74-106); High Density Lipoprotein 37 mg/dL; Protein, Total 7.9 g/dL (6.4-8.2); Sodium Level 138 mmol/L (136-145); Thyroid Stim Hormone (TSH) 2.84 uIU/mL (0.358-3.74); Triglycerides 278 mg/dL; Very Low Density Lipoprotein 56 mg/dL (5-40)
== END ==
PROVIDERS: PCP Family Medicine; Visit Provider Family Medicine
DX: E78.5 Hyperlipidemia, unspecified (principal); K50.90 Crohn's disease, unspecified, without complications; F31.9 Bipolar disorder, unspecified
CPT/HCPCS: 36415; 80053; 80061; 84443; 85025

== ENCOUNTER → 2020-03-07 13:10 | Outpatient (CLI) | payer OTHER, SELFPAY ==
[2020-03-07 14:49] LABS: Erythrocyte Sedimentation Rate 18 mm/hr (0-30)
[2020-03-07 14:58] LABS: CRP 2.95 mg/L (0.0-3.0)
[2020-03-07 15:04] LABS: Hemoglobin A1c 6.9 % (3.8-5.6)
== END ==
PROVIDERS: PCP Family Medicine; Visit Provider Family Medicine
DX: R73.01 Impaired fasting glucose (principal); K50.90 Crohn's disease, unspecified, without complications
CPT/HCPCS: 36415; 83036; 85652; 86140

== ENCOUNTER → 2020-05-11 09:27 | Outpatient (CLI) | payer OTHER, SELFPAY ==
[2017-05-12 13:03] VITALS: BMI 37.9
--- NOTE | 2020-05-11 09:30 | RAD_ITS ---
STUDY: X-RAY - RIGHT ANKLE REASON FOR EXAM: Female, 55 years old. medial right ankle pain just recent -- pt cannot remember recent injury, did have a fall in Mar TECHNIQUE: 3 view(s) of the ankle. COMPARISON: None. FINDINGS: Normal visualized distal tibia and fibula. Normal medial and lateral malleoli. Normal tibiotalar articulation and ankle mortise. Normal visualized talus and calcaneus. Small plantar calcaneal enthesophyte. The visualized subtalar, talonavicular, calcaneocuboid and tarsal articulations are normal. The soft tissue structures are unremarkable. RAD/Ankle min 3 Views IMPRESSION: Normal x-ray examination of the ankle. Electronically Signed: Nathanael Matthews MD at 13:41 EDT Tel , Service support ,
== END ==
PROVIDERS: PCP Family Medicine; Referring Provider Family Medicine; Visit Provider Family Medicine
DX: M25.571 Pain in right ankle and joints of right foot (principal)
CPT/HCPCS: 73610

== ENCOUNTER → 2020-10-05 09:39 | Outpatient (CLI) | payer OTHER, SELFPAY ==
[2020-10-05 11:41] LABS: Creatinine, Serum 0.87 mg/dL (0.55-1.02); EST Glomerular Filtration Rate 73 mL/min (>60); Est Glom Filt Rate - Afr Amer 88 mL/min (>60); Thyroid Stim Hormone (TSH) 3.26 uIU/mL (0.358-3.74)
== END ==
PROVIDERS: PCP Family Medicine; Referring Provider Psychiatry & Neurology Psychiatry; Visit Provider Psychiatry & Neurology Psychiatry
DX: F19.10 Other psychoactive substance abuse, uncomplicated (principal); R53.83 Other fatigue; Z79.899 Other long term (current) drug therapy
CPT/HCPCS: 36415; 80178; 82565; 84443

== ENCOUNTER → 2020-11-09 12:28 | Outpatient (CLI) | payer OTHER, SELFPAY | PROVIDERS: PCP Family Medicine; Referring Provider Internal Medicine Gastroenterology; Visit Provider Internal Medicine Gastroenterology | DX: K50.90 Crohn's disease, unspecified, without complications (principal) | CPT/HCPCS: 36415 ==

== ENCOUNTER → 2020-12-15 12:49 | Outpatient (CLI) | payer OTHER, SELFPAY ==
--- NOTE | 2020-12-15 12:50 | BI_ITS ---
MAMMOGRAPHY - BILATERAL SCREENING REASON FOR EXAM: Female, 55 years old. Routine annual screening examination. PERTINENT HISTORY: Non-contributory. TECHNIQUE: Digital bilateral breast anncy (3D mammographic acquisition) in the CC and MLO projections. 2-D mediolateral oblique (MLO) and craniocaudad (CC) views of both breasts were obtained. CAD: Full Field Digital Mammography with Computer Added Detection was performed. COMPARISON: Comparison is made with prior study dated 09/14/2019 and 06/04/2018. FINDINGS: Breast Composition: The breasts are heterogeneously dense, which may obscure small masses. There is a 7.4 mm x 4.3 mm nodule in the deep upper lateral aspect of the right breast. Correlation with ultrasound is recommended. Once again, there is stable asymmetry of breast tissue where more breast tissue is seen in the upper outer quadrant of the left breast as compared to the right side. Stable benign-appearing bilateral axillary lymph nodes. No other significant abnormalities are identified. BI/SCRN MAMM (CAD)W/NANCY BILAT IMPRESSION: 7.4 mm x 4.3 mm well-defined nodule in the deep upper lateral aspect of the right breast. Correlation with ultrasound is recommended. ASSESSMENT CATEGORY: BIRADS Category 0: Incomplete. Need additional imaging evaluation. A letter regarding these results will be sent to the patient by the facility within 30 days. Approximately 10% of breast cancers are not detected by mammography. A normal mammogram should not delay biopsy of a clinically suspicious abnormality. [id number] Electronically Signed: Kurt Mattson MD at 14:33 EDT , Service support ,
== END ==
PROVIDERS: PCP Family Medicine; Referring Provider Obstetrics & Gynecology; Visit Provider Obstetrics & Gynecology
DX: Z12.31 Encounter for screening mammogram for malignant neoplasm of breast (principal)
CPT/HCPCS: 77063; 77067

== ENCOUNTER → 2020-12-21 10:54 | Outpatient (CLI) | payer OTHER, SELFPAY ==
--- NOTE | 2020-12-21 10:57 | US_ITS ---
STUDY: ULTRASOUND BREAST - RIGHT REASON FOR EXAM: Female, 55 years old. Abnormal screening mammogram. TECHNIQUE: Axial and longitudinal images of the RIGHT breast were performed with a high resolution ultrasound transducer. # OF IMAGES: 51 COMPARISON: Comparison is made with prior mammogram dated 12/15/2020. FINDINGS: RIGHT Breast: The lateral half of the right breast as well as the medial inferior aspect of the right breast was examined by ultrasound. There is a 3 mm x 4 mm x 3 mm cyst at the 8 o''clock position of the breast at 2 cm from nipple. There is also evidence of a 4 mm x 6 mm x 4 mm cyst at the 4 o''clock position of the breast at 6 size. US/Breast Limited Unilateral IMPRESSION: 2 small cysts are seen as described. Routine mammographic follow-up is recommended. ASSESSMENT CATEGORY: BIRADS Category 2: Benign. A letter regarding these results will be sent to the patient by the facility within 30 days. Electronically Signed: Kurt Mattson MD at 12:20 EDT , Service support ,
== END ==
PROVIDERS: PCP Family Medicine; Referring Provider Obstetrics & Gynecology; Visit Provider Obstetrics & Gynecology
DX: R92.8 Other abnormal and inconclusive findings on diagnostic imaging of breast (principal)
CPT/HCPCS: 76642

== ENCOUNTER 2021-04-17 10:05 | Outpatient (CLI) | payer OTHER, SELFPAY ==
[2021-04-17 12:28] LABS: Absolute Lymphocyte Count 2.24 X10^3/uL (0.83-4.51); Absolute Neutrophil Count 5.2 X10^3/uL (2.0-7.7); Basophil# 0.04 X10^3/uL; Basophil% 0.5 % (0-1); Eosinophil# 0.16 X10^3/uL; Hematocrit 39.2 % (37-47); Hemoglobin 12.9 g/dL (12.0-15.0); Lymphocyte # 2.24 X10^3/ul (0.83-4.51); Lymphocyte % 27.3 % (19-41); Mean Corp Hgb Conc 32.9 g/dL (32-36); Mean Corpuscular Hgb 30.9 pg (27.0-32.0); Mean Corpuscular Volume 93.8 fL (81-99); Mean Platelet Vol. 10.8 fl (6.2-12.0); Monocyte# 0.55 X10^3/uL; Monocyte% 6.7 % (0-10); NRBC Flagged by Analyzer 0 % (0-5); Neutrophil # 5.19 X10^3/uL (2.7-7.7); Neutrophil % 63.3 % (47-70); Platelet Count 286 K/mm3 (150-450); RBC Distribution Width CV 12.6 % (11.6-14.6); RBC Distribution Width SD 43.2 fl (35.1-43.9); Red Blood Count 4.18 M/mm3 (4.2-5.4); White Blood Count 8.2 K/mm3 (4.4-11.0)
[2021-04-17 12:59] LABS: ALB/GLOB Ratio 0.9 RATIO (0.9-2.4); AST(SGOT) 24 U/L (15-37); Alanine Aminotransfer ALT/SGPT 39 U/L (13-56); Albumin, Serum 3.7 g/dL (3.2-5.0); Alkaline Phosphatase 102 U/L (45-117); Anion Gap 2 (5-15); BUN 13 mg/dL (7-18); BUN/Creat Ratio 16.3 RATIO (10-20); Calcium,Total 9.8 mg/dL (8.5-10.1); Chloride 112 mmol/L (98-107); Cholesterol 154 mg/dL (200); EST Glomerular Filtration Rate 80 mL/min (>60); Est Glom Filt Rate - Afr Amer 97 mL/min (>60); Glucose 172 mg/dL (74-106); High Density Lipoprotein 34 mg/dL; Microalbumin,Random Urine 42.1 mg/L (NO RANGE EST.); Microalbumin:Creatinine Ratio 35.1 mg/g CRE (<30 mg/g CRE); Protein, Total 7.7 g/dL (6.4-8.2); Sodium Level 139 mmol/L (136-145); Triglycerides 234 mg/dL; Very Low Density Lipoprotein 47 mg/dL (5-40)
== END 2021-04-17 23:59 | disposition home or self-care (01) ==
LOC: MTLAB 10:07
PROVIDERS: PCP Family Medicine; Referring Provider Family Medicine; Visit Provider Family Medicine
DX: E11.9 Type 2 diabetes mellitus without complications (principal); F31.9 Bipolar disorder, unspecified; K50.90 Crohn's disease, unspecified, without complications; E78.5 Hyperlipidemia, unspecified
CPT/HCPCS: 36415; 80053; 80061; 82043; 82570; 85025

== ENCOUNTER → 2021-08-16 | Outpatient (CLI) | payer OTHER, SELFPAY ==
[2021-08-16 13:05] LABS: Creatinine, Serum 0.91 mg/dL (0.55-1.02); EST Glomerular Filtration Rate 68 mL/min (>60); Est Glom Filt Rate - Afr Amer 83 mL/min (>60); Thyroid Stim Hormone (TSH) 2.49 uIU/mL (0.358-3.74)
== END | disposition home or self-care (01) ==
LOC: MTLAB 10:06
PROVIDERS: PCP Family Medicine; Referring Provider Psychiatry & Neurology Psychiatry; Visit Provider Psychiatry & Neurology Psychiatry
DX: F19.10 Other psychoactive substance abuse, uncomplicated (principal); R53.83 Other fatigue; Z79.899 Other long term (current) drug therapy
CPT/HCPCS: 36415; 80178; 82565; 84443

== ENCOUNTER → 2021-12-28 | Outpatient (CLI) | payer OTHER, SELFPAY ==
--- NOTE | 2021-12-28 13:55 | BI_ITS ---
MAMMOGRAPHY - BILATERAL SCREENING REASON FOR EXAM: Female, 56 years old. Routine annual screening examination. PERTINENT HISTORY: Non-contributory. TECHNIQUE: Digital bilateral breast nancy (3D mammographic acquisition) in the CC and MLO projections. 2-D mediolateral oblique (MLO) and craniocaudad (CC) views of both breasts were obtained. CAD: Full Field Digital Mammography with Computer Added Detection was performed. COMPARISON: Comparison is made with prior examination dated 12/15/2020 and 09/14/2019. FINDINGS: Breast Composition: The breasts are heterogeneously dense, which may obscure small masses. 16 again, there is asymmetry of breast tissue with more breast tissue is seen in the upper outer quadrant of the left breast as compared to the right side. Stable 7.5 mm x 4.3 mm well-defined nodule in the deep upper outer aspect of the right breast. Prior ultrasound demonstrated this to be a small cyst. Stable benign-appearing bilateral axillary lymph nodes. No other significant abnormalities are identified. There has been no significant change since the prior study. BI/SCRN MAMM (CAD)W/NANCY BILAT IMPRESSION: Stable bilateral screening mammogram. Yearly follow-up mammogram recommended. (A) ASSESSMENT CATEGORY: BIRADS Category 2: Benign. A letter regarding these results will be sent to the patient by the facility within 30 days. Approximately 10% of breast cancers are not detected by mammography. A normal mammogram should not delay biopsy of a clinically suspicious abnormality. [id number] Electronically Signed: Kurt Mattson MD at 8:25 EST ,
== END | disposition home or self-care (01) ==
LOC: OPBI 13:54
PROVIDERS: PCP Family Medicine; Referring Provider Family Medicine; Visit Provider Family Medicine
DX: Z12.31 Encounter for screening mammogram for malignant neoplasm of breast (principal)
CPT/HCPCS: 77063; 77067

== ENCOUNTER → 2022-04-02 | Outpatient (CLI) | payer OTHER, SELFPAY ==
[2022-04-02 12:29] LABS: Creatinine, Serum 0.87 mg/dL (0.55-1.02); EST Glomerular Filtration Rate 72 mL/min (>60); Est Glom Filt Rate - Afr Amer 87 mL/min (>60); Thyroid Stim Hormone (TSH) 2.89 uIU/mL (0.358-3.74)
== END | disposition home or self-care (01) ==
LOC: MTLAB 10:05
PROVIDERS: PCP Family Medicine; Referring Provider Psychiatry & Neurology Psychiatry; Visit Provider Psychiatry & Neurology Psychiatry
DX: R53.83 Other fatigue (principal); F19.10 Other psychoactive substance abuse, uncomplicated; Z79.899 Other long term (current) drug therapy
CPT/HCPCS: 36415; 80178; 82565; 84443

== ENCOUNTER → 2022-04-15 | Outpatient (CLI) | payer OTHER, SELFPAY ==
--- NOTE | 2022-04-15 09:44 | RAD_ITS ---
STUDY: X-RAY - ESOPHAGUS (BARIUM SWALLOW) WITH FLUOROSCOPY REASON FOR EXAM: Female, 57 years old. DYSPHAGIA TECHNIQUE: 15 view(s) of the esophagus were obtained following swallowing of barium. FLUOROSCOPY TIME (if supplied): (26 seconds) minutes/seconds. 9.96 mGy COMPARISON: None. FINDINGS: There is no demonstrated esophageal foreign body. There is no demonstrated stricture or mucosal abnormality. Normal gastroesophageal junction, without a demonstrated hiatal hernia. The patient ingested a 12 mm tablet of barium without any difficulty. Normal visualized aortic arch and descending thoracic aorta. Normal visualized pulmonary parenchyma. Normal visualized osseous structures of the thorax. RAD/Esophagus Dual Contrast IMPRESSION: Normal plain film x-ray examination (barium swallow) of the esophagus. Electronically Signed: Kurt Mattson MD at 15:05 EST ,
== END | disposition home or self-care (01) ==
LOC: RAD 09:42
PROVIDERS: PCP Family Medicine; Referring Provider Internal Medicine Gastroenterology; Visit Provider Internal Medicine Gastroenterology
DX: R13.10 Dysphagia, unspecified (principal)
CPT/HCPCS: 74221

== ENCOUNTER → 2022-04-22 | Outpatient (CLI) | payer OTHER, SELFPAY ==
[2022-04-22 09:58] LABS: Absolute Lymphocyte Count 2.54 X10^3/uL (0.83-4.51); Basophil# 0.04 X10^3/uL; Basophil% 0.5 % (0-1); Eosinophil# 0.19 X10^3/uL; Eosinophils% 2.3 % (0-5); Hematocrit 43.2 % (37-47); Lymphocyte # 2.54 X10^3/ul (0.83-4.51); Lymphocyte % 30.2 % (19-41); Mean Corp Hgb Conc 32.4 g/dL (32-36); Mean Corpuscular Hgb 30.6 pg (27.0-32.0); Mean Corpuscular Volume 94.3 fL (81-99); Mean Platelet Vol. 10.6 fl (6.2-12.0); Monocyte# 0.58 X10^3/uL; Monocyte% 6.9 % (0-10); NRBC Flagged by Analyzer 0 % (0-5); Neutrophil # 5.04 X10^3/uL (2.7-7.7); Neutrophil % 59.7 % (47-70); Platelet Count 262 K/mm3 (150-450); RBC Distribution Width CV 12.2 % (11.6-14.6); RBC Distribution Width SD 42.4 fl (35.1-43.9); Red Blood Count 4.58 M/mm3 (4.2-5.4); White Blood Count 8.4 K/mm3 (4.4-11.0)
[2022-04-22 10:31] LABS: Microalbumin:Creatinine Ratio 39.2 mg/g CRE (<30 mg/g CRE)
[2022-04-22 10:42] LABS: ALB/GLOB Ratio 0.9 RATIO (0.9-2.4); AST(SGOT) 26 U/L (15-37); Alanine Aminotransfer ALT/SGPT 44 U/L (13-56); Albumin, Serum 3.9 g/dL (3.2-5.0); Alkaline Phosphatase 99 U/L (45-117); Anion Gap 8 (5-15); BUN 13 mg/dL (7-18); BUN/Creat Ratio 14.7 RATIO (10-20); Calcium,Total 9.6 mg/dL (8.5-10.1); Chloride 109 mmol/L (98-107); Cholesterol 192 mg/dL (200); Creatinine, Serum 0.89 mg/dL (0.55-1.02); EST Glomerular Filtration Rate 70 mL/min (>60); Est Glom Filt Rate - Afr Amer 85 mL/min (>60); Globulin 4.2 g/dL (2.2-4.2); Glucose 210 mg/dL (74-106); High Density Lipoprotein 38 mg/dL; Potassium 3.9 mmol/L (3.5-5.1); Protein, Total 8.1 g/dL (6.4-8.2); Sodium Level 138 mmol/L (136-145); Triglycerides 344 mg/dL; Very Low Density Lipoprotein 69 mg/dL (5-40)
== END | disposition home or self-care (01) ==
LOC: MTLAB 08:53
PROVIDERS: PCP Family Medicine; Visit Provider Family Medicine
DX: E11.9 Type 2 diabetes mellitus without complications (principal); F31.9 Bipolar disorder, unspecified; K50.90 Crohn's disease, unspecified, without complications; E78.5 Hyperlipidemia, unspecified
CPT/HCPCS: 36415; 80053; 80061; 82043; 82570; 85025

== ENCOUNTER → 2022-11-22 | Outpatient (CLI) | payer OTHER, SELFPAY ==
[2022-11-22 12:19] LABS: Absolute Lymphocyte Count 3.09 X10^3/uL (0.83-4.51); Absolute Neutrophil Count 4.3 X10^3/uL (2.0-7.7); Basophil# 0.05 X10^3/uL; Basophil% 0.6 % (0-1); Eosinophil# 0.16 X10^3/uL; Hemoglobin 13.6 g/dL (12.0-15.0); Lymphocyte # 3.09 X10^3/ul (0.83-4.51); Mean Corp Hgb Conc 32.4 g/dL (32-36); Mean Corpuscular Hgb 30.9 pg (27.0-32.0); Mean Corpuscular Volume 95.5 fL (81-99); Mean Platelet Vol. 11.3 fl (6.2-12.0); Monocyte# 0.52 X10^3/uL; Monocyte% 6.4 % (0-10); NRBC Flagged by Analyzer 0 % (0-5); Neutrophil # 4.31 X10^3/uL (2.7-7.7); Neutrophil % 52.9 % (47-70); Platelet Count 292 K/mm3 (150-450); RBC Distribution Width SD 42.2 fl (35.1-43.9); White Blood Count 8.1 K/mm3 (4.4-11.0)
[2022-11-22 12:51] LABS: AST(SGOT) 24 U/L (15-37); Alanine Aminotransfer ALT/SGPT 54 U/L (13-56); Albumin, Serum 3.8 g/dL (3.2-5.0); Alkaline Phosphatase 97 U/L (45-117); Bilirubin, Direct 0.07 mg/dL (0.00-0.30); Globulin 3.9 g/dL (2.2-4.2); Protein, Total 7.7 g/dL (6.4-8.2)
[2022-11-26 19:07] LABS: QNTFERON TB Mitogen Value > 10.00 IU/mL (.); QNTFERON TB Nil Value 0.07 IU/mL (.); QNTFERON TB1+ Ag Value 0.07 IU/mL (.); QNTFERON TB2+ Ag Value 0.07 IU/mL (.); QNTIFERON TB Positive Criteria Negative (Negative)
== END | disposition home or self-care (01) ==
LOC: MTLAB 10:45
PROVIDERS: PCP Family Medicine; Referring Provider Dermatology; Visit Provider Dermatology
DX: L73.2 Hidradenitis suppurativa (principal); L30.4 Erythema intertrigo; Z08 Encounter for follow-up examination after completed treatment for malignant neoplasm; Z85.828 Personal history of other malignant neoplasm of skin; D22.5 Melanocytic nevi of trunk; L82.1 Other seborrheic keratosis; L57.8 Other skin changes due to chronic exposure to nonionizing radiation; L57.0 Actinic keratosis; Z71.89 Other specified counseling; Z79.899 Other long term (current) drug therapy
CPT/HCPCS: 36415; 80076; 85025; 86480

== ENCOUNTER → 2023-01-17 | Outpatient (CLI) | payer OTHER, SELFPAY ==
--- NOTE | 2023-01-17 10:36 | BI_ITS ---
MAMMOGRAPHY - BILATERAL SCREENING REASON FOR EXAM: Female, 57 years old. Routine annual screening examination. PERTINENT HISTORY: Non-contributory. TECHNIQUE: Digital bilateral breast nancy (3D mammographic acquisition) in the CC and MLO projections. 2-D mediolateral oblique (MLO) and craniocaudad (CC) views of both breasts were obtained. CAD: Full Field Digital Mammography with Computer Added Detection was performed. COMPARISON: Comparison is made with prior study dated December 28, 2021 and December 15, 2020. FINDINGS: Breast Composition: The breasts are heterogeneously dense, which may obscure small masses. There are no dominant masses or suspicious calcifications. Stable asymmetry of breast tissue or more breast tissue is seen in the upper outer quadrant of left breast as compared to the right side. Stable 7 mm x 4.2 well-defined nodule in the deep upper outer aspect of the right breast. Prior sonogram demonstrated this to be a small cyst. Stable small bilateral axillary lymph nodes. No other significant abnormalities are identified. There has been no significant change since the prior study. BI/SCRN MAMM (CAD)W/NANCY BILAT IMPRESSION: Stable bilateral screening mammogram. Yearly follow-up mammogram recommended. (A) ASSESSMENT CATEGORY: BIRADS Category 2: Benign. A letter regarding these results will be sent to the patient by the facility within 30 days. Approximately 10% of breast cancers are not detected by mammography. A normal mammogram should not delay biopsy of a clinically suspicious abnormality. [id number] Electronically Signed: Kurt Mattson MD at 12:10 EST ,
== END | disposition home or self-care (01) ==
LOC: OPBI 10:34
PROVIDERS: PCP Family Medicine; Visit Provider Family Medicine
DX: Z12.31 Encounter for screening mammogram for malignant neoplasm of breast (principal)
CPT/HCPCS: 77063; 77067

== ENCOUNTER → 2023-01-23 | Outpatient (CLI) | payer OTHER, SELFPAY ==
[2023-01-23 13:09] LABS: AST(SGOT) 27 U/L (15-37); Alanine Aminotransfer ALT/SGPT 41 U/L (13-56); Albumin, Serum 3.9 g/dL (3.2-5.0); Alkaline Phosphatase 96 U/L (45-117); Anion Gap 5 (5-15); BUN 13 mg/dL (7-18); Calcium,Total 9.9 mg/dL (8.5-10.1); Chloride 110 mmol/L (98-107); Creatinine, Serum 0.81 mg/dL (0.55-1.02); EST Glomerular Filtration Rate 78 mL/min (>60); Est Glom Filt Rate - Afr Amer 94 mL/min (>60); Glucose 167 mg/dL (74-106); Potassium 4.2 mmol/L (3.5-5.1); Protein, Total 7.9 g/dL (6.4-8.2); Sodium Level 136 mmol/L (136-145); Thyroid Stim Hormone (TSH) 3.45 uIU/mL (0.358-3.74)
== END | disposition home or self-care (01) ==
PROVIDERS: PCP Family Medicine; Referring Provider Psychiatry & Neurology Psychiatry; Visit Provider Psychiatry & Neurology Psychiatry
DX: R53.83 Other fatigue (principal); F19.10 Other psychoactive substance abuse, uncomplicated; Z79.899 Other long term (current) drug therapy
CPT/HCPCS: 36415; 80053; 80178; 84443

== ENCOUNTER → 2023-04-24 | Outpatient (CLI) | payer OTHER, SELFPAY ==
[2023-04-24 12:05] LABS: Absolute Neutrophil Count 4.3 X10^3/uL (2.0-7.7); Basophil# 0.05 X10^3/uL; Basophil% 0.7 % (0-1); Eosinophil# 0.16 X10^3/uL; Eosinophils% 2.1 % (0-5); Hematocrit 39.8 % (37-47); Hemoglobin 12.9 g/dL (12.0-15.0); Lymphocyte % 34.4 % (19-41); Mean Corp Hgb Conc 32.4 g/dL (32-36); Mean Corpuscular Hgb 31.2 pg (27.0-32.0); Mean Corpuscular Volume 96.1 fL (81-99); Mean Platelet Vol. 11.8 fl (6.2-12.0); Monocyte# 0.46 X10^3/uL; Monocyte% 6.1 % (0-10); NRBC Flagged by Analyzer 0 % (0-5); Neutrophil # 4.27 X10^3/uL (2.7-7.7); Neutrophil % 56.6 % (47-70); POSITIVE COUNT YES; Platelet Count 138 K/mm3 (150-450); RBC Distribution Width CV 12.5 % (11.6-14.6); RBC Distribution Width SD 43.7 fl (35.1-43.9); Red Blood Count 4.14 M/mm3 (4.2-5.4); White Blood Count 7.6 K/mm3 (4.4-11.0)
[2023-04-24 13:22] LABS: AST(SGOT) 31 U/L (15-37); Alanine Aminotransfer ALT/SGPT 55 U/L (13-56); Albumin, Serum 3.7 g/dL (3.2-5.0); Alkaline Phosphatase 103 U/L (45-117); Anion Gap 11 (5-15); BUN 13 mg/dL (7-18); Calcium,Total 9.7 mg/dL (8.5-10.1); Chloride 109 mmol/L (98-107); Cholesterol 179 mg/dL (200); Creatinine, Serum 0.86 mg/dL (0.55-1.02); EST Glomerular Filtration Rate 72 mL/min (>60); Est Glom Filt Rate - Afr Amer 87 mL/min (>60); Globulin 3.7 g/dL (2.2-4.2); Glucose 202 mg/dL (74-106); High Density Lipoprotein 36 mg/dL; Potassium 4.1 mmol/L (3.5-5.1); Protein, Total 7.4 g/dL (6.4-8.2); Sodium Level 139 mmol/L (136-145); Triglycerides 294 mg/dL; Very Low Density Lipoprotein 59 mg/dL (5-40)
[2023-04-24 13:25] LABS: Microalbumin,Random Urine 55.6 mg/L (NO RANGE EST.); Microalbumin:Creatinine Ratio 22.7 mg/g CRE (<30 mg/g CRE)
== END | disposition home or self-care (01) ==
LOC: BFHLAB 10:30
PROVIDERS: PCP Family Medicine; Visit Provider Family Medicine
DX: Z00.00 Encounter for general adult medical examination without abnormal findings (principal); F31.9 Bipolar disorder, unspecified; K50.90 Crohn's disease, unspecified, without complications; E11.29 Type 2 diabetes mellitus with other diabetic kidney complication; E78.5 Hyperlipidemia, unspecified; R80.9 Proteinuria, unspecified
CPT/HCPCS: 36415; 80053; 80061; 82043; 82570; 83036; 85025

== ENCOUNTER → 2023-06-17 | Outpatient (CLI) | payer OTHER, SELFPAY ==
[2023-06-17 17:55] LABS: Absolute Lymphocyte Count 3.64 X10^3/uL (0.83-4.51); Absolute Neutrophil Count 6.4 X10^3/uL (2.0-7.7); Basophil# 0.07 X10^3/uL; Basophil% 0.6 % (0-1); Eosinophil# 0.18 X10^3/uL; Eosinophils% 1.6 % (0-5); Hematocrit 40.3 % (37-47); Hemoglobin 13.3 g/dL (12.0-15.0); Lymphocyte # 3.64 X10^3/ul (0.83-4.51); Lymphocyte % 32.9 % (19-41); Mean Corpuscular Hgb 31.1 pg (27.0-32.0); Mean Corpuscular Volume 94.2 fL (81-99); Mean Platelet Vol. 11.4 fl (6.2-12.0); Monocyte# 0.75 X10^3/uL; Monocyte% 6.8 % (0-10); NRBC Flagged by Analyzer 0 % (0-5); Neutrophil # 6.41 X10^3/uL (2.7-7.7); Neutrophil % 57.8 % (47-70); Platelet Count 300 K/mm3 (150-450); RBC Distribution Width CV 12.2 % (11.6-14.6); RBC Distribution Width SD 42.3 fl (35.1-43.9); Red Blood Count 4.28 M/mm3 (4.2-5.4); White Blood Count 11.1 K/mm3 (4.4-11.0)
[2023-06-17 18:36] LABS: AST(SGOT) 21 U/L (15-37); Alanine Aminotransfer ALT/SGPT 46 U/L (13-56); Albumin, Serum 3.9 g/dL (3.2-5.0); Alkaline Phosphatase 92 U/L (45-117); Bilirubin, Direct 0.06 mg/dL (0.00-0.30); Globulin 3.9 g/dL (2.2-4.2); Protein, Total 7.8 g/dL (6.4-8.2)
[2023-06-19 11:09] LABS: QNTFERON TB Mitogen Value > 10.00 IU/mL (.); QNTFERON TB Nil Value 0.07 IU/mL (.); QNTFERON TB1+ Ag Value 0.05 IU/mL (.); QNTFERON TB2+ Ag Value 0.05 IU/mL (.); QNTIFERON TB Positive Criteria Negative (Negative)
== END | disposition home or self-care (01) ==
LOC: MTLAB 16:19
PROVIDERS: PCP Family Medicine; Referring Provider Dermatology; Visit Provider Dermatology
DX: Z08 Encounter for follow-up examination after completed treatment for malignant neoplasm (principal); L73.2 Hidradenitis suppurativa; L30.4 Erythema intertrigo; L82.1 Other seborrheic keratosis; D18.01 Hemangioma of skin and subcutaneous tissue; L57.8 Other skin changes due to chronic exposure to nonionizing radiation; Z71.89 Other specified counseling; Z79.899 Other long term (current) drug therapy; Z85.828 Personal history of other malignant neoplasm of skin
CPT/HCPCS: 36415; 80076; 85025; 86480

== ENCOUNTER → 2023-07-09 | Outpatient (CLI) | payer OTHER, SELFPAY ==
[2023-07-09 13:01] LABS: ALB/GLOB Ratio 0.9 RATIO (0.9-2.4); AST(SGOT) 34 U/L (15-37); Alanine Aminotransfer ALT/SGPT 49 U/L (13-56); Albumin, Serum 3.5 g/dL (3.2-5.0); Alkaline Phosphatase 94 U/L (45-117); Anion Gap 7 (5-15); BUN 13 mg/dL (7-18); Calcium,Total 9.6 mg/dL (8.5-10.1); Chloride 109 mmol/L (98-107); Creatinine, Serum 0.93 mg/dL (0.55-1.02); EST Glomerular Filtration Rate 66 mL/min (>60); Est Glom Filt Rate - Afr Amer 80 mL/min (>60); Glucose 299 mg/dL (74-106); Protein, Total 7.5 g/dL (6.4-8.2); Sodium Level 137 mmol/L (136-145); Thyroid Stim Hormone (TSH) 3.19 uIU/mL (0.358-3.74)
== END | disposition home or self-care (01) ==
PROVIDERS: PCP Family Medicine; Referring Provider Psychiatry & Neurology Psychiatry; Visit Provider Psychiatry & Neurology Psychiatry
DX: F19.10 Other psychoactive substance abuse, uncomplicated (principal); R53.83 Other fatigue; Z79.899 Other long term (current) drug therapy
CPT/HCPCS: 36415; 80053; 80178; 84443

== ENCOUNTER → 2024-01-28 | Outpatient (CLI) | payer OTHER, SELFPAY ==
--- NOTE | 2024-01-28 12:10 | BI_ITS ---
MAMMOGRAPHY - BILATERAL SCREENING REASON FOR EXAM: Female, 58 years old. Routine annual screening examination. PERTINENT HISTORY: Non-contributory. TECHNIQUE: Digital bilateral breast nancy (3D mammographic acquisition) in the CC and MLO projections. 2-D mediolateral oblique (MLO) and craniocaudad (CC) views of both breasts were obtained. CAD: Full Field Digital Mammography with Computer Added Detection was performed. COMPARISON: Comparison is made with prior study dated January 17, 2023 and December 28, 2021. FINDINGS: Breast Composition: There are scattered areas of fibroglandular density. There are no dominant masses or suspicious calcifications. Stable asymmetry of breast tissue where more breast tissue is seen in the upper outer quadrant of the left breast as compared to the right side. Stable 7 mm x 4 mm well-defined nodule in the deep upper outer aspect of the right breast. Prior sonogram demonstrated this to be a small cyst. No other significant abnormalities are identified. There has been no significant change since the prior study. BI/SCRN MAMM (CAD)W/NANCY BILAT IMPRESSION: Stable bilateral screening mammogram. Yearly follow-up mammogram recommended. (A) ASSESSMENT CATEGORY: BIRADS Category 2: Benign. A letter regarding these results will be sent to the patient by the facility within 30 days. Approximately 10% of breast cancers are not detected by mammography. A normal mammogram should not delay biopsy of a clinically suspicious abnormality. [id number] Electronically Signed: Kurt Mattson MD at 13:51 EST ,
== END | disposition home or self-care (01) ==
LOC: OPBI 12:09
PROVIDERS: PCP Family Medicine; Referring Provider Family Medicine; Visit Provider Family Medicine
DX: Z12.31 Encounter for screening mammogram for malignant neoplasm of breast (principal)
CPT/HCPCS: 77063; 77067

== ENCOUNTER → 2024-04-26 | Outpatient (CLI) | payer BC, SELFPAY ==
[2024-04-26 12:54] LABS: Absolute Lymphocyte Count 2.76 X10^3/uL (0.83-4.51); Absolute Neutrophil Count 6.6 X10^3/uL (2.0-7.7); Basophil# 0.05 X10^3/uL; Basophil% 0.5 % (0-1); Eosinophil# 0.21 X10^3/uL; Eosinophils% 2.1 % (0-5); Hematocrit 40.7 % (37-47); Hemoglobin 13.7 g/dL (12.0-15.0); Lymphocyte # 2.76 X10^3/ul (0.83-4.51); Lymphocyte % 27.2 % (19-41); Mean Corp Hgb Conc 33.7 g/dL (32-36); Mean Corpuscular Hgb 31.5 pg (27.0-32.0); Mean Corpuscular Volume 93.6 fL (81-99); Mean Platelet Vol. 11.8 fl (6.2-12.0); Monocyte# 0.51 X10^3/uL; NRBC Flagged by Analyzer 0 % (0-5); Neutrophil # 6.56 X10^3/uL (2.7-7.7); Neutrophil % 64.7 % (47-70); Platelet Count 266 K/mm3 (150-450); RBC Distribution Width CV 12.2 % (11.6-14.6); RBC Distribution Width SD 42.4 fl (35.1-43.9); Red Blood Count 4.35 M/mm3 (4.2-5.4); White Blood Count 10.1 K/mm3 (4.4-11.0)
[2024-04-26 13:01] LABS: ALB/GLOB Ratio 1.3 RATIO (0.9-2.4); AST(SGOT) 32 U/L (<=31); Alanine Aminotransfer ALT/SGPT 35 U/L (<=34); Albumin, Serum 4.3 g/dL (3.5-5.0); Alkaline Phosphatase 105 U/L (35-104); Anion Gap 12 (5-15); BUN 12 mg/dL (4-19); BUN/Creat Ratio 14.5 RATIO (10-20); Calcium,Total 10.1 mg/dL (7.6-11.0); Carbon Dioxide 18.9 mmol/L (21.0-32.0); Chloride 107 mmol/L (98-108); Creatinine, Serum 0.82 mg/dL (0.70-1.20); EST Glomerular Filtration Rate 83 (>60); Globulin 3.4 g/dL (2.2-4.2); Glucose 243 mg/dL (70-99); Potassium 4.2 mmol/L (3.3-5.1); Protein, Total 7.7 g/dL (5.9-8.4); Sodium Level 138 mmol/L (133-145); Total Bilirubin 0.37 mg/dL (0.00-1.30)
[2024-04-26 13:04] LABS: Microalbumin,Random Urine 54.2 mg/L (NO RANGE EST.); Microalbumin:Creatinine Ratio 225.8 mg/g CRE
[2024-04-26 13:22] LABS: Cholesterol 174 mg/dL (<=200); High Density Lipoprotein 40 mg/dL; Low Density Lipoprotein Calc. 89 mg/dL; Triglycerides 229 mg/dL; Very Low Density Lipoprotein 46 mg/dL (5-40); cholesterol:hdl ratio screen 4.39
== END | disposition home or self-care (01) ==
LOC: BFHLAB 09:59
PROVIDERS: PCP Family Medicine; Referring Provider Family Medicine; Visit Provider Family Medicine
DX: E11.29 Type 2 diabetes mellitus with other diabetic kidney complication (principal); K50.90 Crohn's disease, unspecified, without complications; F31.9 Bipolar disorder, unspecified; E78.5 Hyperlipidemia, unspecified; R80.9 Proteinuria, unspecified
CPT/HCPCS: 36415; 80053; 80061; 82043; 82570; 83036; 85025

== ENCOUNTER → 2024-05-05 | Outpatient (CLI) | payer BC, SELFPAY | END | disposition home or self-care (01) | LOC: MTLAB 11:11 | PROVIDERS: PCP Family Medicine; Referring Provider Dermatology; Visit Provider Dermatology | DX: Z79.899 Other long term (current) drug therapy (principal) | CPT/HCPCS: 36415; 86480 ==

== ENCOUNTER → 2024-06-22 | Outpatient (CLI) | payer BC, SELFPAY ==
[2024-06-22 13:10] LABS: Ammonia 34.6 umol/L (11-51)
[2024-06-22 13:24] LABS: ALB/GLOB Ratio 1.3 RATIO (0.9-2.4); AST(SGOT) 25 U/L (<=31); Alanine Aminotransfer ALT/SGPT 29 U/L (<=34); Albumin, Serum 4.3 g/dL (3.5-5.0); Alkaline Phosphatase 101 U/L (35-104); Anion Gap 10 (5-15); BUN 12 mg/dL (4-19); BUN/Creat Ratio 14.9 RATIO (10-20); Calcium,Total 10.1 mg/dL (7.6-11.0); Carbon Dioxide 19.5 mmol/L (21.0-32.0); Chloride 108 mmol/L (98-108); Creatinine, Serum 0.83 mg/dL (0.70-1.20); EST Glomerular Filtration Rate 83 (>60); Globulin 3.3 g/dL (2.2-4.2); Glucose 229 mg/dL (70-99); Protein, Total 7.6 g/dL (5.9-8.4); Sodium Level 138 mmol/L (133-145); Total Bilirubin 0.33 mg/dL (0.00-1.30); Vitamin D,25 Hydroxy 13.1 ng/mL (30-100)
== END | disposition home or self-care (01) ==
LOC: MTLAB 10:00
PROVIDERS: PCP Family Medicine; Referring Provider Psychiatry & Neurology Psychiatry; Visit Provider Psychiatry & Neurology Psychiatry
DX: Z79.899 Other long term (current) drug therapy (principal)
CPT/HCPCS: 36415; 80053; 82140; 82306; 84443

== ENCOUNTER → 2024-11-16 | Outpatient (CLI) | payer BC, SELFPAY ==
[2024-11-19 05:07] LABS: QNTFERON TB Mitogen Value > 10.00 IU/mL (.); QNTFERON TB Nil Value 0.05 IU/mL (.); QNTFERON TB1+ Ag Value 0.04 IU/mL (.); QNTFERON TB2+ Ag Value 0.05 IU/mL (.); QNTIFERON TB Positive Criteria Negative (Negative)
== END | disposition home or self-care (01) ==
LOC: MTLAB 09:57
PROVIDERS: PCP Family Medicine; Referring Provider Dermatology; Visit Provider Dermatology
DX: Z79.899 Other long term (current) drug therapy (principal)
CPT/HCPCS: 36415; 86480

== ENCOUNTER → 2024-12-22 | Outpatient (CLI) | payer BC, SELFPAY ==
--- OUTSIDE RECORDS SUMMARY | 2024-12-22 18:07 | XMS RPT_ITS | CCD ---
Author Organization [facility] CliniSymn Care Team Providers Care Physical Security Specialist Name Role Phone SHANNAN BARNARD Unavailable Unavailable Kareem PATRICK, Dr. Boogie Primary Care Provider Kareem PATRICK, Dr. Boogie Attending Provider Kareem PATRICK, Dr. Boogie Referring Provider Imtiaz PATRICK, Dr. Galeano Attending Provider Imtiaz PATRICK, Dr. Galeano Referring Provider Kareem PATRICK, Dr. Boogie Primary Care Provider [phone] Kareem PATRICK, Dr. Boogie Attending Provider Kareem PATRICK, Dr. Boogie Referring Provider Lucero PATRICK, Dr. Milligan Attending Provider Lucero PATRICK, Dr. Milligan Referring Provider [phone] Chuyita Serna Primary Care Unavailable Chuyita Serna Attending Unavailable Chuyita Serna Referring Unavailable Froylan Kitchen Attending Unavailable Froylan Kitchen Referring Unavailable Chuyita Serna Primary Care Unavailable Chuyita Serna Primary Care Unavailable Chel Barker Attending Unavailable Chel Barker Referring Unavailable Chuyita Serna Primary Care Unavailable Froylan Kitchen Attending Unavailable Froylan Kitchen Referring Unavailable Chuyita Serna Primary Care Unavailable Chuyita Serna Attending Unavailable Chuyita Serna Referring Unavailable Allergies Allergy Classification Reported Allergen(s) Allergy Type Date of Onset Reaction(s) Facility (12 sources) Azithromycin Drug Allergy 05-13-19 18 [facility] (5 sources) Corticosteroids Allergy to substance 05-13-19 18 severe mood swings [facility] (7 sources) Glucocorticoid Receptor Agonists Allergy to substance 06-26-19 Other [facility] Comment on above: severe mood swings (1 source) Azithromycin Drug Allergy 05-13-19 [facility] (1 source) Corticosteroids Drug allergy (disorder) 06-26-19 [facility] Medications Current Medications Medication Drug Class(es) Dates Sig (Normalized) Sig (Original) 0.8 ml adalimumab 50 mg/ml auto-injector (12 sources) Tumor Necrosis Factor Stefany Start: 05-12-2017 Adalimumab (Humira Pen) 40 mg/0.8 mL pen injector kit Active 40 mg SC Q14D May 12, 2017 12:00am lithium carbonate 300 mg oral capsule (12 sources) Start: 05-12-2017 take 4 capsules by mouth once [place] Carbonate 300 mg capsule Active 1200 mg PO ONCE May 12, 2017 12:00am Start: 05-12-2017 take 1200 mg by mouth once Lit hium Carbonate Active 1200 MG PO ONCE May 12, 2017 12:00am venlafaxine 75 mg oral tablet (12 sources) Serotonin and Norepinephrine Reuptake Inhibitor Start: 05-12-2017 take 1 tablet by mouth once daily Venlafaxine 75 mg tablet Active 75 mg PO daily May 12, 2017 12:00am Problems Active Problems Problem Classification Problem Date Documented Da te Episodic/Chronic Diabetes mellitus with complications (1 source) Type 2 diabetes mellitus with other diabetic kidney complication; Translations: [Type 2 diabetes mellitus with other diabetic kidney complication] Onset: 05-05-2024 Chronic Genitourinary symptoms and ill-defined conditions (2 sources) Unspecified abnormal findings in urine; Translations: [Unspecified abnormal findings in urine] Onset: 11-12-2017 Episodic Other aftercare (1 source) Other fdc (current) drug therapy; Translations: [Other rn angiography (current) drug therapy] Onset: 12-10-2024 Episodic Past or Other Problems Problem Classification Problem Date Documented Da te Episodic/Chronic Other screening for suspected conditions (not mental disorders or infectious disease) (1 source) Encounter for screening mammogram for malignant neoplasm of breast; Translations: [Encounter for screening mammogram for malignant neoplasm of breast] Onset: 03-02-2024 Episodic Results Test Name Value Interpretation Reference Range Facility Quantiferon TB-Gold+on 11-19 QFT MITOGEN ALEJANDRA > 10.00 Normal . [facility] Comment on above: Performed By: #### L 3400.8000 #### [facility] [address] [place], [address] QFT NIL VALUE 0.05 IU/mL Normal . [facility] Comment on above: Performed By: #### L 3400.8000 #### [facility] [address] [place], [place], [id number] QFT TB GOLD+ Comment Normal . [facility] Comment on above: Result Comment: Jarred tiFERON-TB Gold Plus is a qualitative indirect test for M tuberculosis infection (including disease) and is intended for use in conjunction with risk assessment, radiography, and other medical and diagnostic evaluations. The QuantiFERON-TB Gold Plus result is determined by subtracting the Nil value from either TB antigen (Ag) value. The Mitogen tube serves as a control for the test. Performed By: #### L 3400.8000 #### [facility] [address] [place], [address] QFT TB POS CRIT Negative Normal Negative [facility] Comment on above: Result Comment: No r esponse to M tuberculosis antigens detected. Infection with M tuberculosis is unlikely, but high risk individuals should be considered for additional testing (ATS/IDSA/CDC Clinical Practice Guidelines, 2017). The reference range is an Antigen minus Nil result of <0.35 IU/mL. The specimen received for QuantiFERON testing was incubated by the ordering institution. Specific procedures outlined in our Directory of Services and in the package insert for the QuantiFERON Gold (In Tube) test must be followed to enable for proper stimulation of cells for the production of interferon gamma. Chemiluminescence immunoassay methodology Performed at: [address] [id number] Medical [employer] Poster: Russel Burger PhD, Phone: [phone] Performed By: #### L 3400.8000 #### [facility] [address] [place], [address] QFT TB1+ AG ALEJANDRA 0.04 IU/mL Normal . [facility] Comment on above: Performed By: #### L 3400.8000 #### [facility] [address] [place], [place], [id number] QFT TB2+ AG ALEJANDRA 0.05 IU/mL Normal . [facility] Comment on above: Performed By: #### L 3400.8000 #### [facility] [address] [place], [place], [id number] Microalb:Creat Ratio,Random URon 09-13-2024 MALB:CREAT 22.6 mg/g CRE Normal <30 mg/g CRE [facility] Comment on above: Result Comment: AMENDED REPORT 09/13/242106 MALB:CREAT previously reported as: 225.8 mg/g CRE Performed By: #### L 3400.8000 #### [facility] [address] [place], [place], [id number] L3410.9992on 06-23-2024 [facility] Mis. COMMENT Normal . [facility] Comment on above: Order Comment: [id number] LITHIUM Result Comment: Test Ordered: [id number] [place] (Eskalith(R)), Serum [place] (Eskalith(R)), Serum 0.9 mmol/L Reference Range: 0.5-1.2 A concentration of 0.5-0.8 mmol/L is advised for long-term use; concentrations of up to 1.2 mmol/L may be necessary during acute treatment. Detection Limit = 0.1 <0.1 indicates None Detected Performed at: - [facility] [address] [id number] [employer] Poster: Russel Burger PhD, Phone: [phone] Performed By: #### L 506.1001, L501.7620, L500.0030, L503.4373, L3410.9992 #### [facility] [address] [place], [place], [id number] Ammoniaon 06-22-2024 Ammonia (P) [Moles/Vol] 34.6 umol/L Normal 11-51 [facility] Comment on above: Performed By: #### L 506.1001, L501.9520, L500.4050, L503.5510, L3410.9992 #### [facility] [address] [place], [place], [id number] Anion gap in Serum or Plasma Ordered By: Chel Barker on 06-22-2024 Anion gap [Moles/Vol] 10 mmol/L 5-15 [facility] BUN/creatinine ratioOrdered By: Chel Barker on 06-22-2024 Urea nitrogen/Creatinine [Mass ratio] 14.9 mg/mg 10- [facility] Bilirubin, totalOrdered By: Chel Braker on 06-22-2024 Bilirubin [Mass/Vol] 0.33 mg/dL 0.00-1.30 [facility] Carbon dioxide, total [Moles /volume] in Central venous bloodOrdered By: Chel Barker on 06-22-2024 CO2 [Moles/Vol] 19.5 mmol/L Low 21.0-32.0 [facility] Chloride assayOrdered By: Jessie Barker on 06-22-2024 Chloride [Moles/Vol] 108 mmol/L 98-108 [facility] Comprehensive Metabolic Prof ilon 06-22-2024 Albumin [Mass/Vol] 4.3 g/dL Normal 3.5-5.0 [facility] Comment on above: Performed By: #### L 506.1001, L501.9520, L500.4050, L503.5510, L3410.9992 #### [facility] [address] [place], [place], [id number] Albumin/Globulin [Mass ratio] 1.3 {ratio} Normal 0.9-2.4 [facility] Comment on above: Performed By: #### L 506.1001, L501.9520, L500.4050, L503.5510, L3410.9992 #### [facility] [address] [place], [address] ALK PHOS 101 U/L Normal 35-104 [facility] Comment on above: Performed By: #### L 506.1001, L501.9520, L500.4050, L503.5510, L3410.9992 #### [facility] [address] [place], [address] ALT [Catalytic activity/Vol] 29 U/L Normal <=34 [facility] Comment on above: Performed By: #### L 506.1001, L501.9520, L500.4050, L503.5510, L3410.9992 #### [facility] [address] [place], [address] AST [Catalytic activity/Vol] 25 U/L Normal <=31 [facility] Comment on above: Performed By: #### L 506.1001, L501.9520, L500.4050, L503.5510, L3410.9992 #### [facility] [address] [place], [address] Bilirubin [Mass/Vol] 0.33 mg/dL Normal 0.00-1.30 [facility] Comment on above: Performed By: #### L 506.1001, L501.9520, L500.4050, L503.5510, L3410.9992 #### [facility] [address] [place], [address] BUN/CRE 14.9 RATIO Normal 10-20 [facility] Comment on above: Performed By: #### L 506.1001, L501.9520, L500.4050, L503.5510, L3410.9992 #### [facility] [address] [place], [address] Calcium [Mass/Vol] 10.1 mg/dL Normal 7.6-11.0 [facility] Comment on above: Performed By: #### L 506.1001, L501.9520, L500.4050, L503.5510, L3410.9992 #### [facility] [address] [place], [address] Chloride [Moles/Vol] 108 mmol/L Normal 98-108 [facility] Comment on above: Performed By: #### L 506.1001, L501.9520, L500.4050, L503.5510, L3410.9992 #### [facility] [address] [place], [address] CO2 [Moles/Vol] 19.5 mmol/L Low 21.0-32.0 [facility] Comment on above: Performed By: #### L 506.1001, L501.9520, L500.4050, L503.5510, L3410.9992 #### [facility] [address] [place], [address] Creatinine [Mass/Vol] 0.83 mg/dL Normal 0.70-1.20 [facility] Comment on above: Performed By: #### L 506.1001, L501.9520, L500.4050, L503.5510, L3410.9992 #### [facility] [address] [place], [address] GAP 10 Normal 5-15 [facility] Comment on above: Performed By: #### L 506.1001, L501.9520, L500.4050, L503.5510, L3410.9992 #### [facility] [address] [place], [address] GFR/1.73 sq M.predicted among non-blacks MDRD (S/P/Bld) [Vol rate/Area] 83 mL/min/{1.73_m2} Normal >60 [facility] Comment on above: Result Comment: mL/m in/1.73m2 CKD-EPI Creatinine Equation (2020) Performed By: #### L 506.1001, L501.9520, L500.4050, L503.5510, L3410.9992 #### [facility] [address] [place], [address] Globulin (S) [Mass/Vol] 3.3 g/dL Normal 2.2-4.2 [facility] Comment on above: Performed By: #### L 506.1001, L501.9520, L500.4050, L503.5510, L3410.9992 #### [facility] [address] [place], [address] Glucose [Mass/Vol] 229 mg/dL High 70-99 [facility] Comment on above: Performed By: #### L 506.1001, L501.9520, L500.4050, L503.5510, L3410.9992 #### [facility] [address] [place], [address] Potassium [Moles/Vol] 4.0 mmol/L Normal 3.3-5.1 [facility] Comment on above: Performed By: #### L 506.1001, L501.9520, L500.4050, L503.5510, L3410.9992 #### [facility] [address] [place], [address] Sodium [Moles/Vol] 138 mmol/L Normal 133-145 [facility] Comment on above: Performed By: #### L 506.1001, L501.9520, L500.4050, L503.5510, L3410.9992 #### [facility] [address] [place], [address] T PROT 7.6 g/dL Normal 5.9-8.4 [facility] Comment on above: Performed By: #### L 506.1001, L501.9520, L500.4050, L503.5510, L3410.9992 #### [facility] [address] [place], [address] Urea nitrogen [Mass/Vol] 12 mg/dL Normal 4-19 [facility] Comment on above: Performed By: #### L 506.1001, L501.9520, L500.4050, L503.5510, L3410.9992 #### [facility] [address] [place], [address] Glomerular filtration rate ( GFR) estimation/1.73 sq m using serum, plasma, or whole bOrdered By: Chel Barker on 06-22-2024 GFR/1.73 sq M.predicted among non-blacks MDRD (S/P/Bld) [Vol rate/Area] 83 mL/min/{1.73_m2} >60 [facility] Comment on above: mL/min/1.73m2 CKD-EP I Creatinine Equation (2020) Laboratory - Chemistry and C hemistry - challengeOrdered By: Chel Barker on 06-22-2024 AST [Catalytic activity/Vol] 25 U/L <32 [facility] Potassium measurement (mass/ volume)Ordered By: Chel Barker on 06-22-2024 Potassium (Unsp spec) [Mass/Vol] 4.0 mmol/L 3.3-5.1 [facility] Serum creatinine measurement (mass/volume)Ordered By: Chel Barker on 06-22-2024 Creatinine [Mass/Vol] 0.83 mg/dL 0.70-1.20 [facility] Serum globulin measurementOr dered By: Chel Barker on 06-22-2024 Globulin (S) [Mass/Vol] 3.3 g/dL 2.2-4.2 [facility] Serum glucose measurement (m ass/volume)Ordered By: Chel Barker on 06-22-2024 Glucose [Mass/Vol] 229 mg/dL High 70-99 [facility] Serum or plasma alanine atwood otransferase (ALT) measurementOrdered By: Chel Barker on 06-22-2024 ALT [Catalytic activity/Vol] 29 U/L <35 [facility] Serum or plasma albumin frandy urement (mass/volume)Ordered By: Chel Barker on 06-22-2024 Albumin [Mass/Vol] 4.3 g/dL 3.5-5.0 [facility] Serum or plasma albumin/glob ulin mass ratioOrdered By: Chel Barker on 06-22-2024 Albumin/Globulin [Mass ratio] 1.3 {ratio} 0.9-2.4 [facility] Serum or plasma alkaline josh sphatase measurementOrdered By: Chel Barker on 06-22-2024 ALP [Catalytic activity/Vol] 101 U/L 35-104 [facility] Serum or plasma calcium frandy urement (mass/volume)Ordered By: Chel Barker on 06-22-2024 Calcium [Mass/Vol] 10.1 mg/dL 7.6-11.0 [facility] Serum or plasma urea nitroge n measurement (mass/volume)Ordered By: Chel Barker on 06-22-2024 Urea nitrogen [Mass/Vol] 12 mg/dL 4-19 [facility] Sodium levelOrdered By: Chel Barker on 06-22-2024 Sodium [Moles/Vol] 138 mmol/L 133-145 [facility] TSH DL <= 0.005 mIU/L QnOrde red By: Chel Barker on 06-22-2024 TSH Qn 3.490 uIU/mL 0.300-4.20 0 [facility] Thyroid Stim Hormone (TSH)on 06-22-2024 TSH 3.490 uIU/mL Normal 0.300-4.20 0 [facility] Comment on above: Performed By: #### L 506.1001, L501.9509, L500.4050, L503.5510, L3410.9992 #### [facility] [address] [place], [address] Total proteinOrdered By: Reyes Barker on 06-22-2024 Protein [Mass/Vol] 7.6 g/dL 5.9-8.4 [facility] Venous blood ammonia measure mentOrdered By: Chel Barker on 06-22-2024 Ammonia (P) [Moles/Vol] 34.6 umol/L 11-51 [facility] Vitamin D,25 Hydroxyon 06-22 Vitamin D 25-OH 13.1 ng/mL Low 30-100 [facility] Comment on above: Result Comment: Ayah min D Status Deficiency: <20 ng/mL (50nmol/L) Insufficiency: 20-30 ng/mL (50-75 nmol/L) Sufficiency: 30-100 ng/mL (75-250 nmol/L) Toxicity: >100 ng/mL (>250 nmol/L) Performed By: #### L 506.1001, L501.9520, L500.4050, L503.5510, L3410.9992 #### [facility] [address] [place], [address] Quantiferon TB-Gold+on 05-14 QFT MITOGEN ALEJANDRA > 10.00 Normal . [facility] Comment on above: Performed By: #### L 3400.8000 #### [facility] [address] [place], [address] QFT NIL VALUE 0.04 IU/mL Normal . [facility] Comment on above: Performed By: #### L 3400.8000 #### [facility] [address] [place], [address] QFT TB GOLD+ Comment Normal . [facility] Comment on above: Result Comment: Jarred tiFERON-TB Gold Plus is a qualitative indirect test for M tuberculosis infection (including disease) and is intended for use in conjunction with risk assessment, radiography, and other medical and diagnostic evaluations. The QuantiFERON-TB Gold Plus result is determined by subtracting the Nil value from either TB antigen (Ag) value. The Mitogen tube serves as a control for the test. Performed By: #### L 3400.8000 #### [facility] [address] [place], [address] QFT TB POS CRIT Negative Normal Negative [facility] Comment on above: Result Comment: No r esponse to M tuberculosis antigens detected. Infection with M tuberculosis is unlikely, but high risk individuals should be considered for additional testing (ATS/IDSA/CDC Clinical Practice Guidelines, 2017). The reference range is an Antigen minus Nil result of <0.35 IU/mL. The specimen received for QuantiFERON testing was incubated by the ordering institution. Specific procedures outlined in our Directory of Services and in the package insert for the QuantiFERON Gold (In Tube) test must be followed to enable for proper stimulation of cells for the production of interferon gamma. Chemiluminescence immunoassay methodology Performed at: [facility] [id number] [employer] Poster: Russel Burger PhD, Phone: [phone] Performed By: #### L 3400.8000 #### [facility] [address] [facility] [place], [address] QFT TB1+ AG ALEJANDRA 0.04 IU/mL Normal . [facility] Comment on above: Performed By: #### L 3400.8000 #### [facility] [address] [place], [address] QFT TB2+ AG ALEJANDRA 0.03 IU/mL Normal . [facility] Comment on above: Performed By: #### L 3400.8000 #### [facility] [address] [facility] [place], [address] Qualitative QuantiFERON-TB g old in tube testOrdered By: Froylan Kitchen on 05-05-2024 M. tuberculosis tuberculin stim IFN-g Ql (Bld) 0.04 IU/mL . [facility] Absolute lymphocyte countOrd ered By: Chuyita Serna on 04-26-2024 Lymphocytes Auto (Unsp spec) [#/Vol] 2.76 10*3/uL 0.83-4.51 [facility] Absolute neutrophil countOrd ered By: Chuyita Serna on 04-26-2024 Neutrophils (Bld) [#/Vol] 6.6 10*3/uL 2.0-7.7 [facility] Albumin DL <= 20 mg/L (U) [M ass/Vol]Ordered By: Chuyita Serna on 04-26-2024 Urine Random Microalbumin 54.2 mg/L NO RANGE EST. [facility] Anion gap in Serum or Plasma Ordered By: Chuyita Serna on 04-26-2024 Anion gap [Moles/Vol] 12 mmol/L 5- [facility] Automated lymphocyte count a s percentage of total leukocytesOrdered By: Chuyita Serna on 04-26-2024 Lymphocytes/100 WBC Auto (Unsp spec) 27.2 % [facility] BUN/creatinine ratioOrdered By: Chuyita Serna on 04-26-2024 Urea nitrogen/Creatinine [Mass ratio] 14.5 mg/mg 12-06 [facility] Basophil percentageOrdered B y: Chuyita Serna on 04-26-2024 Basophils/100 WBC (Bld) 0.5 % 0- [facility] Bilirubin, totalOrdered By: Chuyita Serna on 04-26-2024 Bilirubin [Mass/Vol] 0.37 mg/dL 0.00-1.30 [facility] CBC W/Diff, Automatedon 04-17 Absolute Lymph 2.76 X10 3/uL Normal 0.83-4.51 [facility] Comment on above: Performed By: #### L 500.4100, L501.9985, L502.0250, L500.4050, L100.0100 #### [facility] [address] [place], [address] Absolute Neut 6.6 X10 3/uL Normal 2.0-7.7 [facility] Comment on above: Performed By: #### L 500.4100, L501.9985, L502.0250, L500.4050, L100.0100 #### [facility] [address] [place], [address] Basophils/100 WBC (Bld) 0.5 % Normal 0-1 [facility] Comment on above: Performed By: #### L 500.4100, L501.9985, L502.0250, L500.4050, L100.0100 #### [facility] [address] [place], [address] Eosinophils/100 WBC (Bld) 2.1 % Normal 0-5 [facility] Comment on above: Performed By: #### L 500.4100, L501.9985, L502.0250, L500.4050, L100.0100 #### [facility] [address] [place], [address] Erythrocyte distribution width (RBC) [Ratio] 12.2 % Normal 11.6-14.6 [facility] Comment on above: Performed By: #### L 500.4100, L501.9985, L502.0250, L500.4050, L100.0100 #### [facility] [address] [place], [address] Hematocrit (Bld) [Volume fraction] 40.7 % Normal 37-47 [facility] Comment on above: Performed By: #### L 500.4100, L501.9985, L502.0250, L500.4050, L100.0100 #### [facility] [address] [place], [address] Hemoglobin (Bld) [Mass/Vol] 13.7 g/dL Normal 12.0-15.0 [facility] Comment on above: Performed By: #### L 500.4100, L501.9985, L502.0250, L500.4050, L100.0100 #### [facility] [address] [place], [address] IG% 0.500 Normal 0.0-0.9 [facility] Comment on above: Result Comment: IG% - Immature Granulocytes (promyelocytes, myelocytes and metamyelocytes) > 1% indicates that a LEFT SHIFT is Present. Performed By: #### L 500.4100, L501.9985, L502.0250, L500.4050, L100.0100 #### [facility] [address] [place], [address] Lymphocytes/100 WBC (Bld) 27.2 % Normal 19-41 [facility] Comment on above: Performed By: #### L 500.4100, L501.9985, L502.0250, L500.4050, L100.0100 #### [facility] [address] [place], [address] MCH (RBC) [Entitic mass] 31.5 pg Normal 27.0-32.0 [facility] Comment on above: Performed By: #### L 500.4100, L501.9985, L502.0250, L500.4050, L100.0100 #### [facility] [address] [place], [address] MCHC (RBC) [Mass/Vol] 33.7 g/dL Normal 32-36 [facility] Comment on above: Performed By: #### L 500.4100, L501.9985, L502.0250, L500.4050, L100.0100 #### [facility] [address] [place], [address] MCV (RBC) [Entitic vol] 93.6 fL Normal 81-99 [facility] Comment on above: Performed By: #### L 500.4100, L501.9985, L502.0250, L500.4050, L100.0100 #### [facility] [address] [place], [address] Monocytes/100 WBC (Bld) 5.0 % Normal 0-10 [facility] Comment on above: Performed By: #### L 500.4100, L501.9985, L502.0250, L500.4050, L100.0100 #### [facility] [address] [place], [address] Neutrophils/100 WBC (Bld) 64.7 % Normal 47-70 [facility] Comment on above: Performed By: #### L 500.4100, L501.9985, L502.0250, L500.4050, L100.0100 #### [facility] [address] [place], [address] Nucleated RBC (Bld) [#/Vol] 0 10*3/uL Normal 0-5 [facility] Comment on above: Performed By: #### L 500.4100, L501.9985, L502.0250, L500.4050, L100.0100 #### [facility] [address] [place], [address] Platelet mean volume (Bld) [Entitic vol] 11.8 fL Normal 6.2-12.0 [facility] Comment on above: Performed By: #### L 500.4100, L501.9985, L502.0250, L500.4050, L100.0100 #### [facility] [address] [place], [address] Platelets (Bld) [#/Vol] 266 10*3/uL Normal 150-450 [facility] Comment on above: Performed By: #### L 500.4100, L501.9985, L502.0250, L500.4050, L100.0100 #### [facility] [address] [place], [address] RBC (Bld) [#/Vol] 4.35 10*6/uL Normal 4.2-5.4 [facility] Comment on above: Performed By: #### L 500.4100, L501.9985, L502.0250, L500.4050, L100.0100 #### [facility] [facility] [address] [place], [address] RDW SD 42.4 fl Normal 35.1-43.9 [facility] Comment on above: Performed By: #### L 500.4100, L501.9985, L502.0250, L500.4050, L100.0100 #### [facility] [address] [place], [address] WBC (Bld) [#/Vol] 10.1 10*3/uL Normal 4.4-11.0 [facility] Comment on above: Performed By: #### L 500.4100, L501.9985, L502.0250, L500.4050, L100.0100 #### [facility] [address] [place], [address] Calculated very low density lipoprotein (VLDL) cholesterol measurementOrdered By: Chuyita Serna on 04-26-2024 Calculated very low density lipoprotein (VLDL) cholesterol measurement 46 mg/dL High 5-40 [facility] VLDL Cholesterol 46 mg/dL High 5-40 [facility] Carbon dioxide, total [Moles /volume] in Central venous bloodOrdered By: Chuyita Serna on 04-26-2024 CO2 [Moles/Vol] 18.9 mmol/L Low 21.0-32.0 [facility] Chloride assayOrdered By: Farshad Serna on 04-26-2024 Chloride [Moles/Vol] 107 mmol/L 98-108 [facility] Comprehensive Metabolic Prof ilon 04-26-2024 Albumin [Mass/Vol] 4.3 g/dL Normal 3.5-5.0 [facility] Comment on above: Performed By: #### L 3400.8000 #### [facility] [address] [place], [address] Albumin/Globulin [Mass ratio] 1.3 {ratio} Normal 0.9-2.4 [facility] Comment on above: Performed By: #### L 3400.8000 #### [facility] [address] [place], [address] ALK PHOS 105 U/L High 35-104 [facility] Comment on above: Performed By: #### L 3400.8000 #### [facility] [address] [place], [address] ALT [Catalytic activity/Vol] 35 U/L Normal <=34 [facility] Comment on above: Performed By: #### L 3400.8000 #### [facility] [address] [place], [address] AST [Catalytic activity/Vol] 32 U/L Normal <=31 [facility] Comment on above: Performed By: #### L 3400.8000 #### [facility] [address] [place], [address] Bilirubin [Mass/Vol] 0.37 mg/dL Normal 0.00-1.30 [facility] Comment on above: Performed By: #### L 3400.8000 #### [facility] [address] [place], [address] BUN/CRE 14.5 RATIO Normal 10-20 [facility] Comment on above: Performed By: #### L 3400.8000 #### [facility] [address] [place], [address] Calcium [Mass/Vol] 10.1 mg/dL Normal 7.6-11.0 [facility] Comment on above: Performed By: #### L [id number] #### [facility] [address] [place], [address] Chloride [Moles/Vol] 107 mmol/L Normal 98-108 [facility] Comment on above: Performed By: #### L [id number] #### [facility] [address] [place], [address] CO2 [Moles/Vol] 18.9 mmol/L Low 21.0-32.0 [facility] Comment on above: Performed By: #### L 3400.8000 #### [facility] [address] [place], [address] Creatinine [Mass/Vol] 0.82 mg/dL Normal 0.70-1.20 [facility] Comment on above: Performed By: #### L 3400.8000 #### [facility] [address] [place], [address] GAP 12 Normal 5-15 [facility] Comment on above: Performed By: #### L 3400.8000 #### [facility] [address] [place], [address] GFR/1.73 sq M.predicted among non-blacks MDRD (S/P/Bld) [Vol rate/Area] 83 mL/min/{1.73_m2} Normal >60 [facility] Comment on above: Result Comment: mL/m in/1.73m2 CKD-EPI Creatinine Equation (2020) Performed By: #### L 3400.8000 #### [facility] [address] [place], [address] Globulin (S) [Mass/Vol] 3.4 g/dL Normal 2.2-4.2 [facility] Comment on above: Performed By: #### L 3400.8000 #### [facility] [address] [place], [address] Glucose [Mass/Vol] 243 mg/dL High 70-99 [facility] Comment on above: Performed By: #### L [id number] #### [facility] [address] [place], [address] Potassium [Moles/Vol] 4.2 mmol/L Normal 3.3-5.1 [facility] Comment on above: Performed By: #### L 3400.8000 #### [facility] [address] [place], [address] Sodium [Moles/Vol] 138 mmol/L Normal 133-145 [facility] Comment on above: Performed By: #### L 3400.8000 #### [facility] [address] [place], [address] T PROT 7.7 g/dL Normal 5.9-8.4 [facility] Comment on above: Performed By: #### L [id number] #### [facility] [address] [place], [address] Urea nitrogen [Mass/Vol] 12 mg/dL Normal 4-19 [facility] Comment on above: Performed By: #### L 3400.8000 #### [facility] [address] [place], [address] Creatinine Unsp time (U) [Ma ss/Vol]Ordered By: Chuyita Serna on 04-26-2024 Creatinine (U) [Mass/Vol] 240.00 mg/dL High 28-217 [facility] Eosinophil percentageOrdered By: Chuyita Serna on 04-26-2024 Eosinophils/100 WBC (Bld) 2.1 % 0-5 [facility] Erythrocyte distribution wid th ratioOrdered By: Chuyita Serna on 04-26-2024 Erythrocyte distribution width (RBC) [Ratio] 12.2 % 11.6-14.6 [facility] Erythrocyte distribution wid th standard deviationOrdered By: Chuyita Serna on 04-26-2024 Erythrocyte distribution width (RBC) [Entitic vol] 42.4 fL 35.1-43.9 [facility] Erythrocyte distribution width (RBC) [Ratio] 42.4 fl 35.1-43.9 [facility] GFR/1.73 sq M.predicted santos g non-blacks MDRD (S/P/Bld) [Vol rate/Area]Ordered By: Chuyita Serna on 04-26-2024 Estimated GFR (MDRD) Non-Af Amer 83 >60 [facility] Comment on above: mL/min/1.73m2 CKD-EP I Creatinine Equation (2020) Glomerular filtration rate ( GFR) estimation/1.73 sq m using serum, plasma, or whole bOrdered By: Chuyita Serna on 04-26-2024 GFR/1.73 sq M.predicted among non-blacks MDRD (S/P/Bld) [Vol rate/Area] 83 mL/min/{1.73_m2} >60 [facility] Comment on above: mL/min/1.73m2 CKD-EP I Creatinine Equation (2020) Hematocrit Auto (Bld) [Volum e fraction]Ordered By: Chuyita Serna on 04-26-2024 Hematocrit (Bld) [Volume fraction] 40.7 % 37-47 [facility] Hemoglobin A1con 04-26-2024 HbA1c (Bld) [Mass fraction] 8.0 % Normal <=5.6 [facility] Comment on above: Performed By: #### L 500.4100, L501.9985, L502.0250, L500.4050, L100.0100 #### [facility] [address] [facility] [place], [address] Hemoglobin A1c percentageOrd ered By: Chuyita Serna on 04-26-2024 HbA1c (Bld) [Mass fraction] 8.0 % >5.7 [facility] Hemoglobin measurementOrdere d By: Chuyita Serna on 04-26-2024 Hemoglobin (Bld) [Mass/Vol] 13.7 g/dL 12.0-15.0 [facility] Immature granulocytes/100 WB C Auto (Bld)Ordered By: Chuyita Serna on 04-26-2024 Immature granulocytes/100 WBC (Bld) 0.500 % 0.0-0.9 [facility] Comment on above: IG% - Immature Granu locytes (promyelocytes, myelocytes and metamyelocytes) > 1% indicates that a LEFT SHIFT is Present. LDL calc ser/plasOrdered By: Chuyita Serna on 04-26-2024 Cholesterol in LDL [Mass/Vol] 89 mg/dL [facility] Comment on above: Uzkpsbnhua=740-303 m g/dL & Higher Kfwg=952 mg/dL or greater LDL Cholesterol, Calculated 89 mg/dL [facility] Comment on above: Omtlbfbqbr=690-844 m g/dL & Higher Sddu=195 mg/dL or greater Laboratory - Chemistry and C hemistry - challengeOrdered By: Chuyita Serna on 04-26-2024 AST [Catalytic activity/Vol] 32 U/L <32 [facility] Lipid Profileon 04-26-2024 CHOL:HDL 4.39 Normal [facility] Comment on above: Performed By: #### L 3400.8000 #### [facility] [address] [place], [address] Cholesterol [Mass/Vol] 174 mg/dL Normal <=200 [facility] Comment on above: Result Comment: Chol esterol level, Desirable <200 mg/dL Borderline high cholesterol 200-239 mg/dL High cholesterol >=240 mg/dL Recommendations of the NCEP Adult Treatment Panel for the following risk-cutoff thresholds for the [place] population. Performed By: #### L 3400.8000 #### [facility] [address] [place], [address] Cholesterol in HDL [Mass/Vol] 40 mg/dL Normal [facility] Comment on above: Result Comment: Sherine onal Cholesterol Education Program (NCEP) guidelines: <40 mg/dL: Low HDL-cholesterol (major risk factor for CHD) >= 60 mg/dL: High HDL-cholesterol (negative risk factor for CHD) HDL-cholesterol is affected by a number of factors, e.g. smoking, exercise, hormones, sex and age. Performed By: #### L 3400.8000 #### [facility] [address] [place], [address] Cholesterol in LDL [Mass/Vol] 89 mg/dL Normal [facility] Comment on above: Result Comment: Bord cylgrg=412-964 mg/dL Higher Vudy=439 mg/dL or greater Performed By: #### L 3400.8000 #### [facility] [address] [place], [address] Cholesterol in VLDL [Mass/Vol] 46 mg/dL High 5-40 [facility] Comment on above: Performed By: #### L 3400.8000 #### [facility] [address] [place], [place], [address] Triglyceride [Mass/Vol] 229 mg/dL High [facility] Comment on above: Result Comment: The drugs N-Acetylcysteine and Metamizole may falsely depress this assay. Normal range: <150 mg/dL Borderline High: 150-199 mg/dL High: 200-499 mg/dL Very High: >500 mg/dL Performed By: #### L 3400.8000 #### [facility] [address] [place], [place], [address] Lymphocytes Auto (Unsp spec) [#/Vol]Ordered By: Chuyita Serna on 04-26-2024 Lymphocytes (Bld) [#/Vol] 2.76 10*3/uL 0.83-4.51 [facility] Lymphocytes/100 WBC Auto (Un sp spec)Ordered By: Chuyita Serna on 04-26-2024 Lymphocytes/100 WBC (Bld) 27.2 % 19-41 [facility] MCV (mean corpuscular volume ) determinationOrdered By: Chuyita Serna on 04-26-2024 MCV (RBC) [Entitic vol] 93.6 fL 81-99 [facility] Mean corpuscular hemoglobin (MCH) determinationOrdered By: Chuyita Serna on 04-26-2024 MCH (RBC) [Entitic mass] 31.5 pg 27.0-32.0 [facility] Mean corpuscular hemoglobin concentration (MCHC) determinationOrdered By: Chuyita Serna on 04-26-2024 MCHC (RBC) [Mass/Vol] 33.7 g/dL 32-36 [facility] Mean platelet volume determi nationOrdered By: Chuyita Serna on 04-26-2024 Platelet mean volume (Bld) [Entitic vol] 11.8 fL 6.2-12.0 [facility] Microalbumin/creat ratio urO rdered By: Chuyita Serna on 04-26-2024 Urine Microalbumin/Creatini ne Ratio 225.8 mg/g CRE [facility] Monocyte percentageOrdered B y: Chuyita Serna on 04-26-2024 Monocytes/100 WBC (Bld) 5.0 % 0-10 [facility] Neutrophil percentageOrdered By: Chuyita Serna on 04-26-2024 Neutrophils/100 WBC (Bld) 64.7 % 47-70 [facility] Nucleated red blood cell per centageOrdered By: Chuyita Serna on 04-26-2024 Nucleated RBC/100 WBC (Bld) [Ratio] 0 % 0-5 [facility] Platelet countOrdered By: Farshad Serna on 04-26-2024 Platelets (Bld) [#/Vol] 266 10*3/uL 150-450 [facility] Potassium (Unsp spec) [Mass/ Vol]Ordered By: Chuyita Serna on 04-26-2024 Potassium [Moles/Vol] 4.2 mmol/L 3.3-5.1 [facility] Potassium measurement (mass/ volume)Ordered By: Chuyita Serna on 04-26-2024 Potassium (Unsp spec) [Mass/Vol] 4.2 mmol/L 3.3-5.1 [facility] RBC Auto (Bld) [#/Vol]Ordere d By: Chuyita Serna on 04-26-2024 RBC (Bld) [#/Vol] 4.35 10*6/uL 4.2-5.4 [facility] Random urine creatinine frandy urement (mass/volume)Ordered By: Chuyita Serna on 04-26-2024 Creatinine Unsp time (U) [Mass/Vol] 240.00 mg/dL High 28-217 [facility] Screening total cholesterol/ high density lipoprotein (HDL) cholesterol ratioOrdered By: Chuyita Serna on 04-26-2024 Cholesterol.total/Cho lesterol in HDL [Mass ratio] 4.39 {ratio} [facility] Serum creatinine measurement (mass/volume)Ordered By: Chuyita Serna on 04-26-2024 Creatinine [Mass/Vol] 0.82 mg/dL 0.70-1.20 [facility] Serum globulin measurementOr dered By: Chuyita Serna on 04-26-2024 Globulin (S) [Mass/Vol] 3.4 g/dL 2.2-4.2 [facility] Serum glucose measurement (m ass/volume)Ordered By: Chuyita Serna on 04-26-2024 Glucose [Mass/Vol] 243 mg/dL High 70-99 [facility] Serum or plasma alanine atwood otransferase (ALT) measurementOrdered By: Chuyita Serna on 04-26-2024 ALT [Catalytic activity/Vol] 35 U/L <35 [facility] Serum or plasma albumin frandy urement (mass/volume)Ordered By: Chuyita Serna on 04-26-2024 Albumin [Mass/Vol] 4.3 g/dL 3.5-5.0 [facility] Serum or plasma albumin/glob ulin mass ratioOrdered By: Chuyita Serna on 04-26-2024 Albumin/Globulin [Mass ratio] 1.3 {ratio} 0.9-2.4 [facility] Serum or plasma alkaline josh sphatase measurementOrdered By: Chuyita Serna on 04-26-2024 ALP [Catalytic activity/Vol] 105 U/L High 35-104 [facility] Serum or plasma calcium frandy urement (mass/volume)Ordered By: Chuyita Serna on 04-26-2024 Calcium [Mass/Vol] 10.1 mg/dL 7.6-11.0 [facility] Serum or plasma cholesterol in HDL measurement (mass/volume)Ordered By: Chuyita Serna on 04-26-2024 Cholesterol in HDL [Mass/Vol] 40 mg/dL >40 [facility] Comment on above: National Cholesterol Education Program (NCEP) guidelines:<40 mg/dL: Low HDL-cholesterol (major risk factor for CHD)>= 60 mg/dL: High HDL-cholesterol (negative risk factor for CHD)HDL-cholesterol is affected by a number of factors, e.g. smoking, exercise, hormones, sex and age. Serum or plasma cholesterol measurement (mass/volume)Ordered By: Chuyita Serna on 04-26-2024 Cholesterol [Mass/Vol] 174 mg/dL <201 [facility] Comment on above: Cholesterol level, D esirable <200 mg/dLBorderline high cholesterol 200-239 mg/dLHigh cholesterol >=240 mg/dLRecommendations of the NCEP Adult Treatment Panel for the following risk-cutoff thresholds for the [place] population. Serum or plasma urea nitroge n measurement (mass/volume)Ordered By: Chuyita Serna on 04-26-2024 Urea nitrogen [Mass/Vol] 12 mg/dL 4-19 [facility] Sodium levelOrdered By: Piero Serna on 04-26-2024 Sodium [Moles/Vol] 138 mmol/L 133-145 [facility] Total proteinOrdered By: Beau Serna on 04-26-2024 Protein [Mass/Vol] 7.7 g/dL 5.9-8.4 [facility] Triglycerides measurementOrd ered By: Chuyita Serna on 04-26-2024 Triglyceride [Mass/Vol] 229 mg/dL High <199 [facility] Comment on above: The drugs N-Acetylcy steine and Metamizole may falsely depress this assay. Normal range: <150 mg/dLBorderline High: 150-199 mg/dLHigh: 200-499 mg/dLVery High: >500 mg/dL Urine albumin measurement wi detection limit of 20 mg/L or less (mass/volume)Ordered By: Chuyita Serna on 04-26-2024 Albumin DL <= 20 mg/L (U) [Mass/Vol] 54.2 mg/L NO RANGE EST. [facility] White blood cell (WBC) count Ordered By: Chuyita Serna on 04-26-2024 WBC (Bld) [#/Vol] 10.1 10*3/uL 4.4-11.0 [facility] SCRN MAMM (CAD)W/NANCY BILATo n 01-28-2024 SCRN MAMM (CAD)W/NANCY BILAT [facility] Imaging Services [address] [place] [address] SCRN MAMM (CAD)W/NANCY BILAT MR#: [id number] Acct: [id number] Name: RAVIN BHATT Rep #: [id number] : 1965 F 58 From: Kurt gordillo MD PCP: Dr. Chuyita Serna MD Status: REG [facility] Study: SCRN MAMM (CAD)W/NANCY BILAT Date of Exam: 01/17 03/12 Exam# [id number] Ordering Dr: Chuyita Serna MD :[id number] MAMMOGRAPHY - BILATERAL SCREENING REASON FOR EXAM: Female, 58 years old. Routine annual screening examination. PERTINENT HISTORY: Non-contributory. TECHNIQUE: Digital bilateral breast nancy (3D mammographic acquisition) in the CC and MLO projections. 2-D mediolateral oblique (MLO) and craniocaudad (CC) views of both breasts were obtained. CAD: Full Field Digital Mammography with Computer Added Detection was performed. COMPARISON: Comparison is made with prior study dated January 17, 2023 and December 28, 2021. FINDINGS: Breast Composition: There are scattered areas of fibroglandular density. There are no dominant masses or suspicious calcifications. Stable asymmetry of breast tissue where more breast tissue is seen in the upper outer quadrant of the left breast as compared to the right side. Stable 7 mm x 4 mm well-defined nodule in the deep upper outer aspect of the right breast. Prior sonogram demonstrated this to be a small cyst. No other significant abnormalities are identified. There has been no significant change since the prior study. BI/SCRN MAMM (CAD)W/NANCY BILAT IMPRESSION: Stable bilateral screening mammogram. Yearly follow-up mammogram recommended. (A) ASSESSMENT CATEGORY: BIRADS Category 2: Benign. A letter regarding these results will be sent to the patient by the facility within 30 days. Approximately 10% of breast cancers are not detected by mammography. A normal mammogram should not delay biopsy of a clinically suspicious abnormality. [id number] Electronically Signed: Kurt Mattson MD at 13:51 EST , CC: Dr. Chuyita Serna MD Gate Clerk: Signed Normal [facility] Absolute lymphocyte countOrd ered By: Froylan Kitchen on 06-17-2023 Lymphocytes Auto (Unsp spec) [#/Vol] 3.64 10*3/uL 0.83-4.51 [facility] Automated lymphocyte count a s percentage of total leukocytesOrdered By: Froylan Kitchen on 06-17-2023 Lymphocytes/100 WBC Auto (Unsp spec) 32.9 % 19-41 [facility] Basophil percentageOrdered B y: Froylan Kitchen on 06-17-2023 Basophils/100 WBC (Bld) 0.6 % 0-1 [facility] Bilirubin [Mass/Vol] 0.20 mg/dL 0.20-1.00 [facility] Comment on above: For patients on eltr ombopag therapy, use of Dimension [place] TBIL is not recommended. Eosinophils/100 WBC (Bld) 1.6 % 0-5 [facility] Hemoglobin (Bld) [Mass/Vol] 13.3 g/dL 12.0-15.0 [facility] Monocytes/100 WBC (Bld) 6.8 % 0-10 [facility] Neutrophils (Bld) [#/Vol] 6.4 10*3/uL 2.0-7.7 [facility] Neutrophils/100 WBC (Bld) 57.8 % 47-70 [facility] Protein [Mass/Vol] 7.8 g/dL 6.4-8.2 [facility] WBC (Bld) [#/Vol] 11.1 10*3/uL 4.4-11.0 [facility] Determination of erythrocyte mean corpuscular volume (MCV)Ordered By: Froylan Kitchen on 06-17-2023 MCV (RBC) [Entitic vol] 94.2 fL 81-99 [facility] Direct bilirubinOrdered By: Froylan Kitchen on 06-17-2023 Bilirubin.direct [Mass/Vol] 0.06 mg/dL 0.00-0.30 [facility] Erythrocyte distribution wid th ratioOrdered By: Froylan Kitchen on 06-17-2023 Erythrocyte distribution width (RBC) [Ratio] 12.2 % 11.6-14.6 [facility] Erythrocyte distribution wid th standard deviationOrdered By: Froylan Kitchen on 06-17-2023 Erythrocyte distribution width (RBC) [Entitic vol] 42.3 fL 35.1-43.9 [facility] Hematocrit Auto (Bld) [Volum e fraction]Ordered By: Froylan Kitchen on 06-17-2023 Hematocrit (Bld) [Volume fraction] 40.3 % 37-47 [facility] Immature granulocytes/100 WB C Auto (Bld)Ordered By: Froylan Kitchen on 06-17-2023 Immature granulocytes/100 WBC (Bld) 0.300 % 0.0-0.9 [facility] Comment on above: IG% - Immature Granu locytes (promyelocytes, myelocytes and metamyelocytes) > 1% indicates that a LEFT SHIFT is Present. Laboratory - Chemistry and C hemistry - challengeOrdered By: Froylan Kitchen on 06-17-2023 ALP [Catalytic activity/Vol] 92 U/L 45-117 [facility] ALT [Catalytic activity/Vol] 46 U/L 13-56 [facility] Globulin (S) [Mass/Vol] 3.9 g/dL 2.2-4.2 [facility] Laboratory - Hematology and Cell countsOrdered By: Froylan Kitchen on 06-17-2023 MCH (RBC) [Entitic mass] 31.1 pg 27.0-32.0 [facility] MCHC (RBC) [Mass/Vol] 33.0 g/dL 32-36 [facility] Nucleated RBC/100 WBC (Bld) [Ratio] 0 % 0-5 [facility] Platelet mean volume (Bld) [Entitic vol] 11.4 fL 6.2-12.0 [facility] Platelets (Bld) [#/Vol] 300 10*3/uL 150-450 [facility] Qualitative QuantiFERON-TB g old in tube testOrdered By: Froylan Kitchen on 06-17-2023 M. tuberculosis tuberculin stim IFN-g Ql (Bld) 0.05 IU/mL . [facility] RBC Auto (Bld) [#/Vol]Ordere d By: Froylan Kitchen on 06-17-2023 RBC (Bld) [#/Vol] 4.28 10*6/uL 4.2-5.4 [facility] Thin prep Papanicolaou smear with manual screeningOrdered By: Froylan Kitchen on 06-17-2023 Thin prep Papanicolaou smear with manual screening 3.9 g/dL 3.2-5.0 [facility] Thin prep Papanicolaou smear with manual screening 21 U/L 15-37 [facility] Thin prep Papanicolaou smear with manual screening Comment . [facility] Comment on above: QuantiFERON-TB Gold Plus is a qualitative indirect test forM tuberculosis infection (including disease) and isintended for use in conjunction with risk assessment,radiography, and other medical and diagnostic evaluations.The QuantiFERON-TB Gold Plus result is determined bysubtracting the Nil value from either TB antigen (Ag)value. The Mitogen tube serves as a control for the test. Thin prep Papanicolaou smear with manual screening 0.05 IU/mL . [facility] Thin prep Papanicolaou smear with manual screening 0.07 IU/mL . [facility] Thin prep Papanicolaou smear with manual screening > 10.00 IU/mL . [facility] Thin prep Papanicolaou smear with manual screening Negative Negative [facility] Comment on above: No response to M tub erculosis antigens detected.Infection with M tuberculosis is unlikely, but high riskindividuals should be considered for additional testing(ATS/IDSA/CDC Clinical Practice Guidelines, 2017). Thereference range is an Antigen minus Nil result of <0.35IU/mL.The specimen received for QuantiFERON testing was incubatedby the ordering institution. Specific procedures outlinedin our Directory of Services and in the package insert forthe QuantiFERON Gold (In Tube) test must be followed toenable for proper stimulation of cells for the productionof interferon gamma. Chemiluminescence immunoassaymethodologyPerformed at: [facility] [id number] Director: Russel Burger PhD, Phone: [phone] Absolute lymphocyte countOrd ered By: Chuyita Serna on 04-24-2023 Lymphocytes Auto (Unsp spec) [#/Vol] 2.60 10*3/uL 0.83-4.51 [facility] Automated lymphocyte count a s percentage of total leukocytesOrdered By: Chuyita Serna on 04-24-2023 Lymphocytes/100 WBC Auto (Unsp spec) 34.4 % 19-41 [facility] Basophil percentageOrdered B y: Chuyita Serna on 04-24-2023 Basophils/100 WBC (Bld) 0.7 % 0-1 [facility] Bilirubin [Mass/Vol] 0.40 mg/dL 0.20-1.00 [facility] Comment on above: For patients on eltr ombopag therapy, use of Dimension [place] TBIL is not recommended. Chloride [Moles/Vol] 109 mmol/L 98-107 [facility] Cholesterol [Mass/Vol] 179 mg/dL <200 [facility] Comment on above: <200 mg/dL Desirable 200-240 mg/dL Borderline >240 mg/dL High Risk Eosinophils/100 WBC (Bld) 2.1 % 0-5 [facility] Glucose [Mass/Vol] 202 mg/dL 74-106 [facility] Comment on above: Glucose result great er than or equal to 200 mg/dLsuggests DIABETES MELLITUS per A.D.A. criteria. Hemoglobin (Bld) [Mass/Vol] 12.9 g/dL 12.0-15.0 [facility] Monocytes/100 WBC (Bld) 6.1 % 0-10 [facility] Neutrophils (Bld) [#/Vol] 4.3 10*3/uL 2.0-7.7 [facility] Neutrophils/100 WBC (Bld) 56.6 % 47-70 [facility] Potassium [Moles/Vol] 4.1 mmol/L 3.5-5.1 [facility] Protein [Mass/Vol] 7.4 g/dL 6.4-8.2 [facility] Sodium [Moles/Vol] 139 mmol/L 136-145 [facility] [place] Triglycer[place] [Mass/Vol] 294 mg/dL <199 [facility] Comment on above: The drugs N-Acetylcy steine and Metamizole may falsely depress this assay.Serum Triglycerides Reference Interval Normal <150 mg/dL Borderline high 150 - 199 mg/dL High 200 - 499 mg/dL Very High > or = 500 mg/dL WBC (Bld) [#/Vol] 7.6 10*3/uL 4.4-11.0 [facility] Determination of erythrocyte mean corpuscular volume (MCV)Ordered By: Chuyita Serna on 04-24-2023 MCV (RBC) [Entitic vol] 96.1 fL 81-99 [facility] Erythrocyte distribution wid th ratioOrdered By: [facility] on [facility]-24-2023 Erythrocyte distribution width (RBC) [Ratio] 12.5 % 11.6-14.6 [facility] Erythrocyte distribution wid th standard deviationOrdered By: Chuyita Kareem on 04-24-2023 Erythrocyte distribution width (RBC) [Entitic vol] 43.7 fL 35.1-43.9 [facility] Hematocrit Auto (Bld) [Volum e fraction]Ordered By: Chuyita Serna on 04-24-2023 Hematocrit (Bld) [Volume fraction] 39.8 % 37-47 [facility] Immature granulocytes/100 WB C Auto (Bld)Ordered By: Chuyita Kareem on 04-24-2023 Immature granulocytes/100 WBC (Bld) 0.100 % 0.0-0.9 [facility] Comment on above: IG% - Immature Granu locytes (promyelocytes, myelocytes and metamyelocytes) > 1% indicates that a LEFT SHIFT is Present. Laboratory - Chemistry and C hemistry - challengeOrdered By: Chuyita Serna on 04-24-2023 Albumin/Globulin [Mass ratio] 1.0 {ratio} 0.9-2.4 [facility] ALP [Catalytic activity/Vol] 103 U/L 45-117 [facility] ALT [Catalytic activity/Vol] 55 U/L 13-56 [facility] Cholesterol in HDL [Mass/Vol] 36 mg/dL >40 [facility] Comment on above: The drugs N-Acetylcy steine and Metamizole may falsely depress this assay. Reference Range HDL <40 mg/dL Low HDL Cholesterol HDL >or= 60 mg/dL High HDL Cholesterol Cholesterol in LDL [Mass/Vol] 84 mg/dL 0-130 [facility] CO2 [Moles/Vol] 19.0 mmol/L 21.0-32.0 [facility] Globulin (S) [Mass/Vol] 3.7 g/dL 2.2-4.2 [facility] Urea nitrogen/Creatinine [Mass ratio] 15.0 mg/mg 10-20 [facility] Laboratory - Hematology and Cell countsOrdered By: Chuyita Serna on 04-24-2023 MCH (RBC) [Entitic mass] 31.2 pg 27.0-32.0 [facility] MCHC (RBC) [Mass/Vol] 32.4 g/dL 32-36 [facility] Nucleated RBC/100 WBC (Bld) [Ratio] 0 % 0-5 [facility] Platelet mean volume (Bld) [Entitic vol] 11.8 fL 6.2-12.0 [facility] Platelets (Bld) [#/Vol] 138 10*3/uL 150-450 [facility] No Panel InformationOrdered By: Chuyita Serna on 04-24-2023 Estimated GFR (MDRD) Amer 87 mL/min >60 [facility] Comment on above: GFR Calc Estimated GFR (MDRD) Non-Af Amer 72 mL/min >60 [facility] Comment on above: Non- GFR Calc Urine Microalbumin/Creatini ne Ratio 22.7 mg/g CRE <30 [facility] VLDL Cholesterol 59 mg/dL 5-40 [facility] RBC Auto (Bld) [#/Vol]Ordere d By: Chuyita Serna on 04-24-2023 RBC (Bld) [#/Vol] 4.14 10*6/uL 4.2-5.4 [facility] Serum or plasma calcium frandy urement (mass/volume)Ordered By: Chuyita Serna on 04-24-2023 Calcium [Mass/Vol] 9.7 mg/dL 8.5-10.1 [facility] Serum or plasma creatinine m easurement (mass/volume)Ordered By: Chuyita Serna on 04-24-2023 Creatinine [Mass/Vol] 0.86 mg/dL 0.55-1.02 [facility] Comment on above: The validity of the calculated GFR & GFRAA in patients over 70 years has not been determined. Clinical correlation is essential. Serum or plasma urea nitroge n measurement (mass/volume)Ordered By: Chuyita Serna on 04-24-2023 Urea nitrogen [Mass/Vol] 13 mg/dL 7-18 [facility] Thin prep Papanicolaou smear with manual screeningOrdered By: Chuyita Serna on 04-24-2023 Thin prep Papanicolaou smear with manual screening 3.7 g/dL 3.2-5.0 [facility] Thin prep Papanicolaou smear with manual screening 31 U/L 15-37 [facility] Thin prep Papanicolaou smear with manual screening 11 5-15 [facility] Thin prep Papanicolaou smear with manual screening 55.6 mg/L NO RANGE EST. [facility] Urine creatinine measurement (mass/volume)Ordered By: Chuyita Serna on 04-24-2023 Creatinine (U) [Mass/Vol] 245.00 mg/dL NO RANGE EST. [facility] Whole blood hemoglobin A1c/t otal hemoglobin ratio (mass fraction)Ordered By: Chuyita Serna on 04-24-2023 HbA1c (Bld) [Mass fraction] 7.0 % 3.8-5.6 [facility] Comment on above: Normal < 5.7 % Predi abetic 5.7 - 6.4 % Diabetic >or= 6.5 % Please note range changes. Basophil percentageOrdered B y: Chel Barker on 01-23-2023 Bilirubin [Mass/Vol] 0.40 mg/dL 0.20-1.00 [facility] Comment on above: For patients on eltr ombopag therapy, use of Dimension [place] TBIL is not recommended. Chloride [Moles/Vol] 110 mmol/L 98-107 [facility] Glucose [Mass/Vol] 167 mg/dL 74-106 [facility] Comment on above: Fasting Glucose resu lt greater than or equal to 126 mg/dL suggests DIABETES MELLITUS per A.D.A. criteria. Potassium [Moles/Vol] 4.2 mmol/L 3.5-5.1 [facility] Protein [Mass/Vol] 7.9 g/dL 6.4-8.2 [facility] Sodium [Moles/Vol] 136 mmol/L 136-145 [facility] Laboratory - Chemistry and C hemistry - challengeOrdered By: Chel Barker on 01-23-2023 ALP [Catalytic activity/Vol] 96 U/L 45-117 [facility] ALT [Catalytic activity/Vol] 41 U/L 13-56 [facility] CO2 [Moles/Vol] 21.0 mmol/L 21.0-32.0 [facility] Globulin (S) [Mass/Vol] 4.0 g/dL 2.2-4.2 [facility] Urea nitrogen/Creatinine [Mass ratio] 16.0 mg/mg 10-20 [facility] No Panel InformationOrdered By: Chel Barker on 01-23-2023 Estimated GFR (MDRD) Amer 94 mL/min >60 [facility] Comment on above: GFR Calc Estimated GFR (MDRD) Non-Af Amer 78 mL/min >60 [facility] Comment on above: Non- GFR Calc [place] Level 0.80 mmol/L 0.60-1.20 [facility] Comment on above: Moderate Hemolysis, Result may be falsely increased. Thyroid Stimulating Hormone (TSH) 3.45 uIU/mL 0.358-3.74 [facility] Serum or plasma albumin frandy urement (mass/volume)Ordered By: Chel Barker on 01-23-2023 Albumin [Mass/Vol] 3.9 g/dL 3.2-5.0 [facility] Serum or plasma albumin/glob ulin mass ratioOrdered By: Chel Barker on 01-23-2023 Albumin/Globulin [Mass ratio] 1.0 {ratio} 0.9-2.4 [facility] Serum or plasma calcium frandy urement (mass/volume)Ordered By: Chel Barker on 01-23-2023 Calcium [Mass/Vol] 9.9 mg/dL 8.5-10.1 [facility] Serum or plasma creatinine m easurement (mass/volume)Ordered By: Chel Barker on 01-23-2023 Creatinine [Mass/Vol] 0.81 mg/dL 0.55-1.02 [facility] Comment on above: The validity of the calculated GFR & GFRAA in patients over 70 years has not been determined. Clinical correlation is essential. Serum or plasma urea nitroge n measurement (mass/volume)Ordered By: Chel Barker on 01-23-2023 Urea nitrogen [Mass/Vol] 13 mg/dL 7-18 [facility] Thin prep Papanicolaou smear with manual screeningOrdered By: Chel Barker on 01-23-2023 Thin prep Papanicolaou smear with manual screening 27 U/L 15-37 [facility] Thin prep Papanicolaou smear with manual screening 5 5-15 [facility] Absolute lymphocyte countOrd ered By: Froylan Kitchen on 11-22-2022 Lymphocytes Auto (Unsp spec) [#/Vol] 3.09 10*3/uL 0.83-4.51 [facility] Basophil percentageOrdered B y: Froylan Kitchen on 11-22-2022 Basophils/100 WBC (Bld) 0.6 % 0-1 [facility] Bilirubin [Mass/Vol] 0.30 mg/dL 0.20-1.00 [facility] Comment on above: For patients on eltr ombopag therapy, use of Dimension [place] TBIL is not recommended. Eosinophils/100 WBC (Bld) 2.0 % 0-5 [facility] Neutrophils (Bld) [#/Vol] 4.3 10*3/uL 2.0-7.7 [facility] Neutrophils/100 WBC (Bld) 52.9 % 47-70 [facility] Protein [Mass/Vol] 7.7 g/dL 6.4-8.2 [facility] WBC (Bld) [#/Vol] 8.1 10*3/uL 4.4-11.0 [facility] Blood erythrocytes count (nu mber/volume)Ordered By: Froylan Kitchen on 11-22-2022 RBC (Bld) [#/Vol] 4.40 10*6/uL 4.2-5.4 [facility] Blood hemoglobin measurement (mass/volume)Ordered By: Froylan Kitchen on 11-22-2022 Hemoglobin (Bld) [Mass/Vol] 13.6 g/dL 12.0-15.0 [facility] Blood lymphocytes/100 leukoc ytesOrdered By: Froylan Kitchen on 11-22-2022 Lymphocytes/100 WBC (Bld) 38.0 % 19-41 [facility] Blood monocytes/100 leukocyt esOrdered By: Froylan Kitchen on 11-22-2022 Monocytes/100 WBC (Bld) 6.4 % 0-10 [facility] Blood platelet mean volumeOr dered By: Froylan Kitchen on 11-22-2022 Platelet mean volume (Bld) [Entitic vol] 11.3 fL 6.2-12.0 [facility] Determination of erythrocyte mean corpuscular volume (MCV)Ordered By: Froylan Kitchen on 11-22-2022 MCV (RBC) [Entitic vol] 95.5 fL 81-99 [facility] Direct bilirubinOrdered By: Froylan Kitchen on 11-22-2022 Bilirubin.direct [Mass/Vol] 0.07 mg/dL 0.00-0.30 [facility] Hematocrit Auto (Bld) [Volum e fraction]Ordered By: Froylan Kitchen on 11-22-2022 Hematocrit (Bld) [Volume fraction] 42.0 % 37-47 [facility] Laboratory - Chemistry and C hemistry - challengeOrdered By: Froylan Kitchen on 11-22-2022 ALP [Catalytic activity/Vol] 97 U/L 45-117 [facility] ALT [Catalytic activity/Vol] 54 U/L 13-56 [facility] Globulin (S) [Mass/Vol] 3.9 g/dL 2.2-4.2 [facility] Laboratory - Hematology and Cell countsOrdered By: Froylan Kitchen on 11-22-2022 Erythrocyte distribution width (RBC) [Entitic vol] 42.2 fL 35.1-43.9 [facility] Erythrocyte distribution width (RBC) [Ratio] 12.0 % 11.6-14.6 [facility] Immature granulocytes/100 WBC (Bld) 0.100 % 0.0-0.9 [facility] Comment on above: IG% - Immature Granu locytes (promyelocytes, myelocytes and metamyelocytes) > 1% indicates that a LEFT SHIFT is Present. MCH (RBC) [Entitic mass] 30.9 pg 27.0-32.0 [facility] Nucleated RBC/100 WBC (Bld) [Ratio] 0 % 0-5 [facility] MCHC Auto (RBC) [Mass/Vol]Or dered By: Froylan Kitchen on 11-22-2022 MCHC (RBC) [Mass/Vol] 32.4 g/dL 32-36 [facility] Platelets bldOrdered By: Kurtis Kitchen on 11-22-2022 Platelets (Bld) [#/Vol] 292 10*3/uL 150-450 [facility] Qualitative QuantiFERON-TB g old in tube testOrdered By: Froylan Kitchen on 11-22-2022 M. tuberculosis tuberculin stim IFN-g Ql (Bld) 0.07 IU/mL . [facility] Serum or plasma albumin frandy urement (mass/volume)Ordered By: Froylan Kitchen on 11-22-2022 Albumin [Mass/Vol] 3.8 g/dL 3.2-5.0 [facility] Thin prep Papanicolaou smear with manual screeningOrdered By: Froylan Kitchen on 11-22-2022 Thin prep Papanicolaou smear with manual screening 24 U/L 15-37 [facility] Thin prep Papanicolaou smear with manual screening Comment . [facility] Comment on above: QuantiFERON-TB Gold Plus is a qualitative indirect test forM tuberculosis infection (including disease) and isintended for use in conjunction with risk assessment,radiography, and other medical and diagnostic evaluations.The QuantiFERON-TB Gold Plus result is determined bysubtracting the Nil value from either TB antigen (Ag)value. The Mitogen tube serves as a control for the test. Thin prep Papanicolaou smear with manual screening 0.07 IU/mL . [facility] Thin prep Papanicolaou smear with manual screening > 10.00 IU/mL . [facility] Thin prep Papanicolaou smear with manual screening Negative Negative [facility] Comment on above: No response to M tub erculosis antigens detected.Infection with M tuberculosis is unlikely, but high riskindividuals should be considered for additional testing(ATS/IDSA/CDC Clinical Practice Guidelines, 2017). Thereference range is an Antigen minus Nil result of <0.35IU/mL.The specimen received for QuantiFERON testing was incubatedby the ordering institution. Specific procedures outlinedin our Directory of Services and in the package insert forthe QuantiFERON Gold (In Tube) test must be followed toenable for proper stimulation of cells for the productionof interferon gamma. Chemiluminescence immunoassaymethodologyPerformed at: [facility] [id number] Director: Russel Burger PhD, Phone: [phone] Absolute lymphocyte countOrd ered By: Dr. Serna on 04-22-2022 Lymphocytes Auto (Unsp spec) [#/Vol] 2.54 10*3/uL 0.83-4.51 [facility] Basophil percentageOrdered B y: Dr. Serna on 04-22-2022 Basophils/100 WBC (Bld) 0.5 % 0-1 [facility] Bilirubin [Mass/Vol] 0.50 mg/dL 0.20-1.00 [facility] Comment on above: For patients on eltr ombopag therapy, use of Dimension [place] TBIL is not recommended. Chloride [Moles/Vol] 109 mmol/L 98-107 [facility] Cholesterol [Mass/Vol] 192 mg/dL <200 [facility] Comment on above: <200 mg/dL Desirable 200-240 mg/dL Borderline >240 mg/dL High Risk Eosinophils/100 WBC (Bld) 2.3 % 0-5 [facility] Glucose [Mass/Vol] 210 mg/dL 74-106 [facility] Comment on above: Glucose result great er than or equal to 200 mg/dLsuggests DIABETES MELLITUS per A.D.A. criteria. Neutrophils (Bld) [#/Vol] 5.0 10*3/uL 2.0-7.7 [facility] Neutrophils/100 WBC (Bld) 59.7 % 47-70 [facility] Potassium [Moles/Vol] 3.9 mmol/L 3.5-5.1 [facility] Protein [Mass/Vol] 8.1 g/dL 6.4-8.2 [facility] Sodium [Moles/Vol] 138 mmol/L 136-145 [facility] Triglyceride [Mass/Vol] 344 mg/dL <199 [facility] Comment on above: The drugs N-Acetylcy steine and Metamizole may falsely depress this assay.Serum Triglycerides Reference Interval Normal <150 mg/dL Borderline high 150 - 199 mg/dL High 200 - 499 mg/dL Very High > or = 500 mg/dL WBC (Bld) [#/Vol] 8.4 10*3/uL 4.4-11.0 [facility] Blood erythrocytes count (nu mber/volume)Ordered By: Dr. Serna on 04-22-2022 RBC (Bld) [#/Vol] 4.58 10*6/uL 4.2-5.4 [facility] Blood hemoglobin measurement (mass/volume)Ordered By: Dr. Serna on 04-22-2022 Hemoglobin (Bld) [Mass/Vol] 14.0 g/dL 12.0-15.0 [facility] Blood lymphocytes/100 leukoc ytesOrdered By: Dr. Serna on 04-22-2022 Lymphocytes/100 WBC (Bld) 30.2 % 19-41 [facility] Blood monocytes/100 leukocyt esOrdered By: Dr. Serna on 04-22-2022 Monocytes/100 WBC (Bld) 6.9 % 0-10 [facility] Blood platelet mean volumeOr dered By: Dr. Serna on 04-22-2022 Platelet mean volume (Bld) [Entitic vol] 10.6 fL 6.2-12.0 [facility] Determination of erythrocyte mean corpuscular volume (MCV)Ordered By: Dr. Serna on 04-22-2022 MCV (RBC) [Entitic vol] 94.3 fL 81-99 [facility] Hematocrit Auto (Bld) [Volum e fraction]Ordered By: Dr. Serna on 04-22-2022 Hematocrit (Bld) [Volume fraction] 43.2 % 37-47 [facility] Laboratory - Chemistry and C hemistry - challengeOrdered By: Dr. Serna on 04-22-2022 ALP [Catalytic activity/Vol] 99 U/L 45-117 [facility] ALT [Catalytic activity/Vol] 44 U/L 13-56 [facility] CO2 [Moles/Vol] 21.0 mmol/L 21.0-32.0 [facility] Globulin (S) [Mass/Vol] 4.2 g/dL 2.2-4.2 [facility] Urea nitrogen/Creatinine [Mass ratio] 14.7 mg/mg 10-20 [facility] Laboratory - Hematology and Cell countsOrdered By: Dr. Serna on 04-22-2022 Erythrocyte distribution width (RBC) [Entitic vol] 42.4 fL 35.1-43.9 [facility] Erythrocyte distribution width (RBC) [Ratio] 12.2 % 11.6-14.6 [facility] Immature granulocytes/100 WBC (Bld) 0.400 % 0.0-0.9 [facility] Comment on above: IG% - Immature Granu locytes (promyelocytes, myelocytes and metamyelocytes) > 1% indicates that a LEFT SHIFT is Present. MCH (RBC) [Entitic mass] 30.6 pg 27.0-32.0 [facility] Nucleated RBC/100 WBC (Bld) [Ratio] 0 % 0-5 [facility] MCHC Auto (RBC) [Mass/Vol]Or dered By: Dr. Serna on 04-22-2022 MCHC (RBC) [Mass/Vol] 32.4 g/dL 32-36 [facility] No Panel InformationOrdered By: Dr. Serna on 04-22-2022 Estimated GFR (MDRD) Amer 85 mL/min >60 [facility] Comment on above: GFR Calc Estimated GFR (MDRD) Non-Af Amer 70 mL/min >60 [facility] Comment on above: Non- GFR Calc Urine Microalbumin/Creatini ne Ratio 39.2 mg/g CRE <30 [facility] Platelets bldOrdered By: Dr. Serna on 04-22-2022 Platelets (Bld) [#/Vol] 262 10*3/uL 150-450 [facility] Serum or plasma albumin frandy urement (mass/volume)Ordered By: Dr. Serna on 04-22-2022 Albumin [Mass/Vol] 3.9 g/dL 3.2-5.0 [facility] Serum or plasma albumin/glob ulin mass ratioOrdered By: Dr. Serna on 04-22-2022 Albumin/Globulin [Mass ratio] 0.9 {ratio} 0.9-2.4 [facility] Serum or plasma calcium frandy urement (mass/volume)Ordered By: Dr. Serna on 04-22-2022 Calcium [Mass/Vol] 9.6 mg/dL 8.5-10.1 [facility] Serum or plasma cholesterol in HDL measurement (mass/volume)Ordered By: Dr. Serna on 04-22-2022 Cholesterol in HDL [Mass/Vol] 38 mg/dL >40 [facility] Comment on above: The drugs N-Acetylcy steine and Metamizole may falsely depress this assay. Reference Range HDL <40 mg/dL Low HDL Cholesterol HDL >or= 60 mg/dL High HDL Cholesterol Serum or plasma cholesterol in VLDL measurement (mass/volume)Ordered By: Dr. Serna on 04-22-2022 Cholesterol in VLDL [Mass/Vol] 69 mg/dL 5-40 [facility] Serum or plasma creatinine m easurement (mass/volume)Ordered By: Dr. Serna on 04-22-2022 Creatinine [Mass/Vol] 0.89 mg/dL 0.55-1.02 [facility] Comment on above: The validity of the calculated GFR & GFRAA in patients over 70 years has not been determined. Clinical correlation is essential. Serum or plasma low density lipoprotein (LDL) cholesterol measurement (mass/volume)Ordered By: Dr. Serna on 04-22-2022 Cholesterol in LDL [Mass/Vol] 85 mg/dL 0-130 [facility] Serum or plasma urea nitroge n measurement (mass/volume)Ordered By: Dr. Serna on 04-22-2022 Urea nitrogen [Mass/Vol] 13 mg/dL 7-18 [facility] Thin prep Papanicolaou smear with manual screeningOrdered By: Dr. Serna on 04-22-2022 Thin prep Papanicolaou smear with manual screening 26 U/L 15-37 [facility] Thin prep Papanicolaou smear with manual screening 8 5-15 [facility] Thin prep Papanicolaou smear with manual screening 112.0 mg/L NO RANGE EST. [facility] Urine creatinine measurement (mass/volume)Ordered By: Dr. Serna on 04-22-2022 Creatinine (U) [Mass/Vol] 286.00 mg/dL NO RANGE EST. [facility] No Panel InformationOrdered By: Dr. Barker on 04-02-2022 Estimated GFR (MDRD) Amer 87 mL/min >60 [facility] Comment on above: GFR Calc Estimated GFR (MDRD) Non-Af Amer 72 mL/min >60 [facility] Comment on above: Non- GFR Calc [place] Level 0.70 mmol/L 0.60-1.20 [facility] Thyroid Stimulating Hormone (TSH) 2.89 uIU/mL 0.358-3.74 [facility] Serum or plasma creatinine m easurement (mass/volume)Ordered By: Dr. Barker on 04-02-2022 Creatinine [Mass/Vol] 0.87 mg/dL 0.55-1.02 [facility] Comment on above: The validity of the calculated GFR & GFRAA in patients over 70 years has not been determined. Clinical correlation is essential. No Panel Informationon 08-16 Estimated GFR (MDRD) Amer 83 mL/min >60 [facility] Work Phone: Comment on above: GFR Calc Estimated GFR (MDRD) Non-Af Amer 68 mL/min >60 [facility] Work Phone: Comment on above: Non- GFR Calc [place] Level 0.70 mmol/L 0.60-1.20 [facility] Work Phone: Thyroid Stimulating Hormone (TSH) 2.49 uIU/mL 0.358-3.74 [facility] Work Phone: Serum or plasma creatinine m easurement (mass/volume)on 08-16-2021 Creatinine [Mass/Vol] 0.91 mg/dL 0.55-1.02 [facility] Work Phone: Comment on above: The validity of the calculated GFR & GFRAA in patients over 70 years has not been determined. Clinical correlation is essential. [place] 11-14-2017 ZAIRA Mcclain MICRO - MicrobiologyPROCEDURE: Urine Culture [*1] Urine BODY SITE:COLLECTED DATE/TIME: 11/12/2017 06:26 EDT RECEIVED DATE/TIME: 11/12/2017 15:33 EDTSTART DATE/TIME: 11/12/2017 15:33 EDT FREE TEXT SOURCE:FINAL REPORTSFinal Report []Verified Date/Time/Personnel: 11/14/2017 06:50 EDT20,000 organisms per mLMixed without predominant isolate(s). SensitivityTesting not indicated. Probably contamination. Repeatculture suggested.PRELIMINARY REPORTSPreliminary Report []Verified Date/Time/Personnel: 11/13/2017 14:23 EDTCulture results pending.Performing Locations*1: This test was performed at: [facility], [address] [place] [address], [phone] , [facility] ([place]) Comment on above: Performed By: #### C UR ####[facility] [place] [id number] Encounters Encounter Date Encounter Type Care Provider Facility Start: 11-16-2024 End: 11-16-2024 ambulatory Chuyita Serna Facility:[facility] Start: 06-22-2024 End: 06-22-[address] Chuyita Serna MD Work Phone: [facility] Work Phone: Start: 06-22-2024 End: 06-22-[address] Chel Barker MD -Laboratory, [place] Work Phone: Start: 06-22-2024 End: 06-22-2024 ambulatory Chuyita Serna Facility:[facility] Start: 05-05-2024 End: 05-05-[address] Chuyita Serna MD Work Phone: [facility] Work Phone: Start: 05-05-2024 End: 05-05-[address] Froylan Kitchen MD -Laboratory, [place] Work Phone: Start: 05-05-2024 End: 05-05-2024 ambulatory Froylan Kitchen Facility:[facility] Start: 04-26-2024 End: 04-26-[address] Chuyita Serna MD Work Phone: [facility] Work Phone: Start: 04-26-2024 End: 04-26-[address] [facility] Start: 04-26-2024 End: 04-26-2024 [facility] Start: 01-28-2024 End: 01-28-[address] Chuyita Serna MD -[facility] Work Phone: Start: 01-28-2024 End: 01-28-2024 [facility] Start: 06-17-2023 End: 06-17-2023 ambulatory [facility] Work Phone: Start: 06-17-2023 End: 06-17-2023 Patient encounter procedure [facility] Work Phone: Start: 04-24-2023 End: 04-24-2023 ambulatory [facility] Work Phone: Start: 04-24-2023 End: 04-24-2023 Patient encounter procedure [facility] Start: 01-23-2023 End: 01-23-2023 ambulatory [facility] Work Phone: Start: 01-23-2023 End: 01-23-2023 Patient encounter procedure [facility] Work Phone: Start: 01-17-2023 End: 01-17-2023 ambulatory [facility] Work Phone: Start: 01-17-2023 End: 01-17-2023 Patient encounter procedure [facility] Work Phone: Start: 11-22-2022 End: 11-22-2022 Patient encounter procedure [facility] Work Phone: Start: 04-22-2022 End: 04-22-2022 ambulatory [facility] Work Phone: Start: 04-22-2022 End: 04-22-2022 Patient encounter procedure [facility] Start: 04-15-2022 End: 04-15-2022 ambulatory [facility] Work Phone: Start: 04-15-2022 End: 04-15-2022 Patient encounter procedure [facility], [facility] Start: 04-02-2022 End: 04-02-2022 ambulatory [facility] Work Phone: Start: 04-02-2022 End: 04-02-2022 Patient encounter procedure [facility] Start: 12-28-2021 End: 12-28-2021 ambulatory [facility] Work Phone: Start: 12-28-2021 End: 12-28-2021 Patient encounter procedure [facility] Start: 08-16-2021 End: 08-16-2021 Patient encounter procedure [facility] Start: 11-12-2017 End: 11-17-2017 Patient encounter SHANNAN BARNARD Facility:[facility] Procedures Date Procedure Procedure Detail Performing Clinician Start: 06-22-[address] Chuyita Serna MD Work Phone: Comment on above: Test Ordered: [id number] [place] (Eskalith(R )), SerumLithium (Eskalith(R)), Serum 0.9 mmol/L CB Reference Range: 0.5-1.2A concentration of 0.5-0.8 mmol/L is advised for long-termuse; concentrations of up to 1.2 mmol/L may be necessaryduring acute treatment. Detection Limit = 0.1 <0.1 indicates None DetectedPerformed at: - Lab[address] [id number] Director: Russel Burger PhD, Phone: [phone] Start: 06-22-2024 Vitamin D, 25-hydroxy measurement Dr. Farshad Serna MD Work Phone: Comment on above: Vitamin D StatusDeficiency: <20 ng/mL (5 0nmol/L)Insufficiency: 20-30 ng/mL (50-75 nmol/L)Sufficiency: 30-100 ng/mL (75-250 nmol/L)Toxicity: >100 ng/mL (>250 nmol/L) Start: 05-05-2024 In-vitro immunologic test Dr. Chuyita solis MD Work Phone: Comment on above: QuantiFERON-TB Gold Plus is a qualitativ e indirect test forM tuberculosis infection (including disease) and isintended for use in conjunction with risk assessment,radiography, and other medical and diagnostic evaluations.The QuantiFERON-TB Gold Plus result is determined bysubtracting the Nil value from either TB antigen (Ag)value. The Mitogen tube serves as a control for the test. No response to M tub erculosis antigens detected.Infection with M tuberculosis is unlikely, but high riskindividuals should be considered for additional testing(ATS/IDSA/CDC Clinical Practice Guidelines, 2017). Thereference range is an Antigen minus Nil result of <0.35IU/mL.The specimen received for QuantiFERON testing was incubatedby the ordering institution. Specific procedures outlinedin our Directory of Services and in the package insert forthe QuantiFERON Gold (In Tube) test must be followed toenable for proper stimulation of cells for the productionof interferon gamma. Chemiluminescence immunoassaymethodologyPerformed at: [facility] [address] [id number] Director: Russel Burger PhD, Phone: [phone] Start: 04-26-2024 Urine microalbumin/creatinine ratio measurement Dr. Chuyita Serna MD Work Phone: Start: 01-28-[address] Chuyita Serna MD Work Phone: Start: 01-17-2023 Screening mammography Start: 04-15-2022 Radiography of esophagus Start: 12-28-2021 Screening mammography Plan of Treatment Date Care Activity Detail Author Start: 05-05-2024 In-vitro immunologic test [facility] Mycobacterium tuberc ulosis tuberculin stimulated gamma interferon [facility]Presence[facility] Payers Date Payer Category Payer Unknown [id number] 2024 Self-pay [id number] 2014 Unknown [id number] Unknown [facility] PACKAGE PLAN [id number] Unknown [id number] Unknown [id number] Unknown [id number] [id number] Unknown [id number] [id number] Unknown [id number] [id number] Social History Date Type Detail Facility Start: 05-12-2017 End: 05-12-2017 Tobacco smoking status NHIS Unknown if ever smoked [facility] Start: 1965 Sex Assigned At Female W [facility] Start: 05-12-2017 Tobacco smoking stat us FLIS Never smoked tobacco (finding) [facility] Start: 05-05-2024 End: 05-12-2024 Sex Female (finding) [facility] Evaluation note Note Date & Type Note Facility Evaluation note No assessment information availa ble [facility] Work Phone: Reason for referral (narrative) Note Date & Type Note Facility Reason for referral (narrative) No reason for referral information available [facility] Work Phone: Summary Purpose Family History No Family History Records Found Relationship Condition Age at Onset Recorded Date/T sayda mother Arthritis Unknown Diabetes mellitus Unknown Advance Directives No Advanced Directives Records FoundNo Advanced Directives Records Found Chief Complaint and Reason for Visit Chief Complaint MED CHECK Chief Complaint SCREENING Chief Complaint SCREENING DYSPHAGIA 12 MM TABLET Chief Complaint SKIN SCREENING Chief Complaint SKIN SCREENING LABS Chief Complaint SCREENING LABS Chief Complaint SKIN Chief Complaint Admit Date SCREENING January 28, 2024 12:08pm Additional Source Comments INFORMATION SOURCE (unrecogn ized section and content) DATE CREATED AUTHOR 12/15/2017 [facility] DATE CREATED AUTHOR AUTHOR'S ORGANIZ ATION [facility] Go[facility] (unrecognized section and content) Goals may be documented in a n alternate sectionGoals may be documented in an alternate sectionGoals may be documented in an alternate sectionGoals may be documented in an alternate sectionGoals may be documented in an alternate sectionGoals may be documented in an alternate sectionGoals may be documented in an alternate sectionGoals may be documented in an alternate sectionGoals may be documented in an alternate sectionGoals may be documented in an alternate sectionGoals may be documented in an alternate sectionGoals may be documented in an alternate section Care Teams (unrecognized sec tion and content) Team Status: Active Member Role Status Dates Dr. Chuyita Serna MD Family Provider Active Dr. Chuyita Serna MD Primary Care Provider Active Team Status: Inactive Member Role Status Dates Dr. Chuyita Serna MD Primary Care Prov ider, Attending Provider, Referring Provider Active Team Status: Inactive Member Role Status Dates Dr. Chuyita Serna MD Primary Care Provider Active Dr. Chel Barker MD Attending Provider, Referring P rovipatricia Active Team Status: Inactive Member Role Status Dates Dr. Chuyita Serna MD Primary Care Provider Active Dr. Russel Miranda MD Attending Provider, Referring Provider Active Team Status: Active Member Role Status Dates Dr. Chuyita Serna MD Primary Care Provider, Attendin g Provider Active Team Status: Inactive Member Role Status Dates Dr. Chuyita Serna MD Primary Care Provider, Attendin g Provider Active Team Status: Inactive Member Role Status Dates Dr. Chuyita Serna MD Primary Care Provider Active Dr. Froylan Kitchen MD Attending Provider, Referring Pro vider Active Team Status: Active Member Role Status Dates Dr. Chuyita Serna MD Primary Care Provider Active Team Status: Inactive Member Role Status Dates Dr. Chuyita Serna MD Primary Care Provider Active Start: January 28, 2024 End: January 28, 2024 Dr. Chuyita Serna MD Attending Provider Active Start: January 28, 2024 End: January 28, 2024 Dr. Chuyita Serna MD Referring Provider Active Start: January 28, 2024 End: January 28, 2024 Team Status: Inactive Member Role Status Dates Dr. Chuyita Serna MD Primary Care Provider Active Start: April 26, 2024 End: April 26, 2024 Dr. Chuyita Serna MD Attending Provider Active Start: April 26, 2024 End: April 26, 2024 Dr. Chuyita Serna MD Referring Provider Active Start: April 26, 2024 End: April 26, 2024 Team Status: Active Member Role Status Dates Dr. Chuyita Serna MD Primary Care Provider Active Start: May 05, 2024 Dr. Froylan Kitchen MD Attending Provider Active S tart: May 05, 2024 Dr. Froylan Kitchen MD Referring Provider Active S tart: May 05, 2024 Team Status: Inactive Member Role Status Dates Dr. Chuyita Serna MD Primary Care Provider Active Start: May 05, 2024 End: May 05, 2024 Dr. Froylan Kitchen MD Attending Provider Active S tart: May 05, 2024 End: May 05, 2024 Dr. Froylan Kitchen MD Referring Provider Active S tart: May 05, 2024 End: May 05, 2024 Team Status: Inactive Member Role Status Dates Dr. Chuyita Serna MD Primary Care Provider Active Start: June 22, 2024 End: June 22, 2024 Dr. Chel Barker MD Attending Provider Active Start: June 22, 2024 End: June 22, 2024 Dr. Chel Barker MD Referring Provider Active Start: June 22, 2024 End: June 22, 2024 FOR RECORDS PERTAINING TO PATIENTS WHO ARE OR HAVE BEEN ENROLLED IN A CHEMICAL DEPENDENCY/SUBSTANCEABUSE PROGRAM, SOME INFORMATION MAY BE OMITTED. This clinical summary was aggregated from multiple sources. Caution should be exercised in using it in the provision of clinical care. This summary normalizes information from multiple sources, and as a consequence, information in this document may materially change the coding, format and clinical context of patient data. In addition, data may be omitted in some cases. CLINICAL DECISIONS SHOULD BE BASED ON THE PRIMARY CLINICAL RECORDS. [facility]. provides no warranty or guarantee of the accuracy or completeness of information in this document.
[2024-12-22 18:08] LABS: Hematocrit 39.6 % (37-47); Hemoglobin 13.5 g/dL (12.0-15.0); Mean Corp Hgb Conc 34.1 g/dL (32-36); Mean Corpuscular Volume 93.0 fL (81-99); Mean Platelet Vol. 11.0 fl (6.2-12.0); Platelet Count 289 K/mm3 (150-450); RBC Distribution Width CV 12.3 % (11.6-14.6); RBC Distribution Width SD 42.1 fl (35.1-43.9); Red Blood Count 4.26 M/mm3 (4.2-5.4); White Blood Count 12.2 K/mm3 (4.4-11.0)
[2024-12-22 18:31] LABS: AST(SGOT) 29 U/L (<=31); Alanine Aminotransfer ALT/SGPT 46 U/L (<=34); Albumin, Serum 4.4 g/dL (3.5-5.0); Alkaline Phosphatase 91 U/L (35-104); Anion Gap 8 (5-15); BUN 10 mg/dL (4-19); BUN/Creat Ratio 14.1 RATIO (10-20); Calcium,Total 11.1 mg/dL (7.6-11.0); Carbon Dioxide 23.6 mmol/L (21.0-32.0); Chloride 108 mmol/L (98-108); Globulin 3.3 g/dL (2.2-4.2); Glucose 68 mg/dL (70-99); Potassium 4.0 mmol/L (3.3-5.1)
[2024-12-22 18:39] LABS: CRP < 3.00 mg/L (0.0-3.0)
== END | disposition home or self-care (01) ==
LOC: MTLAB 15:58
PROVIDERS: PCP Family Medicine; Referring Provider Internal Medicine Gastroenterology; Visit Provider Internal Medicine Gastroenterology
DX: K50.90 Crohn's disease, unspecified, without complications (principal)
CPT/HCPCS: 36415; 80053; 85027; 86140